=== PATIENT | male | born 1940 | race Caucasian/White ===

== ENCOUNTER 2018-05-30 15:14 | Inpatient (IN) | payer MEDICARE ==
--- NOTE | 2018-05-30 15:42 | ED ---
General Adult HPI - General Chief complaint: Chest Pain Stated complaint: chest pain Time Seen by Provider: 05/30/18 15:26 Source: patient, RN notes reviewed, old records reviewed Mode of arrival: wheelchair Limitations: no limitations - History of Present Illness Initial comments: 77-year-old male with history of CAD status post CABG presenting for evaluation of chest pain. Patient has history of hypercholesterolemia and hypertriglyceridemia. He is a nonsmoker, no history diabetes. His pain began around 10 AM this morning, this was mild right-sided at 1-2 out of 10. He did complain of some mild nausea, no significant vomiting. No diaphoresis. Pain is left sided pressure. He does also reports some palpitations. Patient is currently on aspirin and Xarelto. He states he had similar symptoms 2 nights prior, this woke patient from sleep. This symptom resolved with no specific treatment. Patient did take nitroglycerin today with some improvement in his pain. - Related Data Home Medications Medication Instructions Recorded Confirmed Multivitamin [Men's Multi-Vitamin] 1 tab PO DAILY 04/11/14 05/30/18 Isosorbide Mononitrate ER [Imdur] 30 mg PO DAILY 04/13/14 05/30/18 Ubidecarenone [Coq-10] 200 mg PO DAILY 04/13/14 05/30/18 Atorvastatin [Lipitor] 20 mg PO DAILY 10/15/14 06/16/16 Metoprolol Succinate (ER) [Toprol 75 mg PO BID 10/15/14 05/30/18 XL] Tamsulosin [Flomax] 0.4 mg PO HS 10/15/14 05/30/18 Aspirin EC [Ecotrin Low Dose] 81 mg PO DAILY 06/16/16 05/30/18 Polyethylene Glycol 3350 [Miralax] 0.5 tsp PO QAM 06/16/16 05/30/18 Rivaroxaban [Xarelto] 20 mg PO DAILY 06/16/16 05/30/18 ALPRAZolam [Xanax] 0.25 mg PO HS PRN 05/30/18 05/30/18 Acetaminophen Tab [Tylenol Tab] 650 mg PO Q6H PRN 05/30/18 05/30/18 Polyethylene Glycol 3350 [Miralax] 1 tsp PO HS 05/30/18 05/30/18 Previous Rx's Medication Instructions Recorded Nitroglycerin Sl Tabs [Nitrostat] 0.4 mg SUBLINGUAL Q5M PRN #0 tab 06/17/16 Allergies Allergy/AdvReac Type Severity Reaction Status Date / Time Penicillins Allergy Rash/Hives Verified 05/30/18 15:45 promethazine HCl AdvReac Uncontrolled Verified 05/30/18 15:45 [From Phenergan] Muscle Movements Review of Systems ROS Statement: Those systems with pertinent positive or pertinent negative responses have been documented in the HPI. ROS Other: All systems not noted in ROS Statement are negative. Past Medical History Past Medical History: Coronary Artery Disease (CAD), Hyperlipidemia, Myocardial Infarction ([place]), Pneumonia, Prostate Disorder, Skin Disorder Additional Past Medical History / Comment(s): renal lithiasis, Arthritis, SKIN CA, Last Myocardial Infarction Date:: 2007 History of Any Multi-Drug Resistant Organisms: None Reported Past Surgical History: Coronary Bypass/CABG, Heart Catheterization, Orthopedic Surgery, Prostate Surgery Additional Past Surgical History / Comment(s): lithotripsy, renal lithiasis resection with left renal open resection, also renal lithiasis resection with basket removal, SKIN CA REMOVED Past Anesthesia/Blood Transfusion Reactions: No Reported Reaction Additional Past Anesthesia/Blood Transfusion Reaction / Comment(s): DIFF WAKING Past Psychological History: No Psychological Hx Reported Smoking Status: Never smoker Past Alcohol Use History: None Reported, Occasional Past Drug Use History: None Reported - Past Family History Father Family Medical History: Cancer, Myocardial Infarction ([place]) Additional Family Medical History / Comment(s): OF PACREATIC CA AGE 70 Mother Family Medical History: Cancer, CVA/TIA, Myocardial Infarction ([place]) Additional Family Medical History / Comment(s): AGE 86 BREAST CA General Exam Limitations: no limitations General appearance: alert, in no apparent distress Head exam: Present: atraumatic, normocephalic Eye exam: Present: normal appearance, PERRL ENT exam: Present: normal exam Neck exam: Present: normal inspection. Absent: tenderness, meningismus Respiratory exam: Present: normal lung sounds bilaterally. Absent: respiratory distress, wheezes Cardiovascular Exam: Present: regular rate, normal rhythm GI/Abdominal exam: Present: soft. Absent: distended, tenderness, guarding Extremities exam: Present: normal inspection, normal capillary refill. Absent: pedal edema Neurological exam: Present: alert, oriented X3, CN II-XII intact. Absent: motor sensory deficit Psychiatric exam: Present: normal affect, normal mood Skin exam: Present: warm, dry, intact. Absent: cyanosis, diaphoretic Course Vital Signs 05/30/18 15:16 Temperature 97.7 F Pulse Rate 71 Respiratory 20 Rate Blood Pressure 118/59 O2 Sat by Pulse 98 Oximetry EKG Findings - EKG Comments: EKG Findings:: EKG: Sinus rhythm with first-degree AV block, no ST segment elevation, there is Q waves in the inferior leads. Rate of 73, TN interval 222 , QRS duration 74, QTC 412 Medical Decision Making - Medical Decision Making 77-year-old male with history of CAD presenting with intermittent chest pain. Symptoms are mild but somewhat concerning for ACS. EKG does not show any definitive signs of acute ischemia. X-ray does show some concern for bronchitis versus mild CHF. Patient has no known history of CHF. Lungs are clear on exam. He does wear supplement oxygen at night as needed. Normal CBC, normal CMP, initial troponin is negative, BNP is normal. Given the patient's symptoms is started on heparin and nitroglycerin emergency department. He will be admitted for serial cardiac enzymes, telemetry, and cardiology evaluation. - Lab Data Result diagrams: 05/30/18 14:30 05/30/18 14:30 Lab Results 05/30/18 05/30/18 05/30/18 Range/Units 14:30 14:30 14:30 WBC 8.6 (3.8-10.6) k/uL RBC 5.07 (4.30-5.90) m/uL Hgb 15.9 (13.0-17.5) gm/dL Hct 48.1 (39.0-53.0) % MCV 94.8 (80.0-100.0) fL MCH 31.3 (25.0-35.0) pg MCHC 33.0 (31.0-37.0) g/dL RDW 13.0 (11.5-15.5) % Plt Count 196 (150-450) k/uL Neutrophils % 59 % Lymphocytes % 30 % Monocytes % 5 % Eosinophils % 3 % Basophils % 1 % Neutrophils # 5.1 (1.3-7.7) k/uL Lymphocytes # 2.6 (1.0-4.8) k/uL Monocytes # 0.5 (0-1.0) k/uL Eosinophils # 0.3 (0-0.7) k/uL Basophils # 0.1 (0-0.2) k/uL PT (9.0-12.0) sec INR (<1.2) APTT (22.0-30.0) sec Sodium 141 (137-145) mmol/L Potassium 4.3 (3.5-5.1) mmol/L Chloride 106 (98-107) mmol/L Carbon Dioxide 25 (22-30) mmol/L Anion Gap 10 mmol/L BUN 18 (9-20) mg/dL Creatinine 1.23 (0.66-1.25) mg/dL Est GFR (CKD-EPI)AfAm 66 (>60 ml/min/1.73 sqM) Est GFR (CKD-EPI)NonAf 57 (>60 ml/min/1.73 sqM) Glucose 135 H (74-99) mg/dL Calcium 9.3 (8.4-10.2) mg/dL Magnesium 2.1 (1.6-2.3) mg/dL Total Bilirubin 0.9 (0.2-1.3) mg/dL AST 33 (17-59) U/L ALT 40 (21-72) U/L Alkaline Phosphatase 85 (38-126) U/L Total Creatine Kinase 155 (55-170) U/L CK-MB (CK-2) 1.4 (0.0-2.4) ng/mL CK-MB (CK-2) Rel Index 0.9 Troponin I <0.012 (0.000-0.034) ng/mL NT-Pro-B Natriuret Pep pg/mL Total Protein 7.1 (6.3-8.2) g/dL Albumin 4.1 (3.5-5.0) g/dL 05/30/18 05/30/18 Range/Units 14:30 14:30 WBC (3.8-10.6) k/uL RBC (4.30-5.90) m/uL Hgb (13.0-17.5) gm/dL Hct (39.0-53.0) % MCV (80.0-100.0) fL MCH (25.0-35.0) pg MCHC (31.0-37.0) g/dL RDW (11.5-15.5) % Plt Count (150-450) k/uL Neutrophils % % Lymphocytes % % Monocytes % % Eosinophils % % Basophils % % Neutrophils # (1.3-7.7) k/uL Lymphocytes # (1.0-4.8) k/uL Monocytes # (0-1.0) k/uL Eosinophils # (0-0.7) k/uL Basophils # (0-0.2) k/uL PT 13.0 H (9.0-12.0) sec INR 1.4 H (<1.2) APTT 30.3 H (22.0-30.0) sec Sodium (137-145) mmol/L Potassium (3.5-5.1) mmol/L Chloride (98-107) mmol/L Carbon Dioxide (22-30) mmol/L Anion Gap mmol/L BUN (9-20) mg/dL Creatinine (0.66-1.25) mg/dL Est GFR (CKD-EPI)AfAm (>60 ml/min/1.73 sqM) Est GFR (CKD-EPI)NonAf (>60 ml/min/1.73 sqM) Glucose (74-99) mg/dL Calcium (8.4-10.2) mg/dL Magnesium (1.6-2.3) mg/dL Total Bilirubin (0.2-1.3) mg/dL AST (17-59) U/L ALT (21-72) U/L Alkaline Phosphatase (38-126) U/L Total Creatine Kinase (55-170) U/L CK-MB (CK-2) (0.0-2.4) ng/mL CK-MB (CK-2) Rel Index Troponin I (0.000-0.034) ng/mL NT-Pro-B Natriuret Pep 129 pg/mL Total Protein (6.3-8.2) g/dL Albumin (3.5-5.0) g/dL Critical Care Time Critical Care Time: Yes Total Critical Care Time: 35 Disposition Clinical Impression: Unstable angina Disposition: ADMITTED IP TO THIS [facility] Condition: Stable Is patient prescribed a controlled substance at d/c from ED?: No Referrals: David Priest MD [Primary Care Provider] - 1-2 days Decision to Admit Reason: Admit from EC Decision Date: 05/30/18 Decision Time: 16:29
[2018-05-30 15:45] LABS: Basophils # (A) 0.1 k/uL (0-0.2); Basophils % (A) 1 %; Eosinophils # (A) 0.3 k/uL (0-0.7); Eosinophils % (A) 3 %; HCT 48.1 % (39.0-53.0); HGB 15.9 gm/dL (13.0-17.5); Lymphocytes # (A) 2.6 k/uL (1.0-4.8); Lymphocytes % (A) 30 %; MCH 31.3 pg (25.0-35.0); MCV 94.8 fL (80.0-100.0); Mean Platelet Volume 6.6; Monocytes # (A) 0.5 k/uL (0-1.0); Monocytes % (A) 5 %; Neutrophils # (A) 5.1 k/uL (1.3-7.7); Neutrophils % (A) 59 %; Platelet Count 196 k/uL (150-450); RBC 5.07 m/uL (4.30-5.90); WBC 8.6 k/uL (3.8-10.6)
[2018-05-30 15:55] LABS: Creatine Kinase 155 U/L (55-170)
[2018-05-30 15:57] LABS: Albumin 4.1 g/dL (3.5-5.0); Calcium 9.3 mg/dL (8.4-10.2); Magnesium 2.1 mg/dL (1.6-2.3); Potassium 4.3 mmol/L (3.5-5.1); Total Bilirubin 0.9 mg/dL (0.2-1.3); Total Protein 7.1 g/dL (6.3-8.2)
[2018-05-30 16:00] LABS: INR 1.4 (<1.2); Partial Thromboplastin Time 30.3 sec (22.0-30.0)
--- NOTE | 2018-05-30 16:06 | XR ---
EXAMINATION TYPE: XR chest 2V DATE OF EXAM: 05/30/2018 COMPARISON: 06/16/2016 HISTORY: 77-year-old male with chest pain TECHNIQUE: Frontal and lateral views FINDINGS: PA sternotomy wires are present. Heart upper limits of normal in size. Diffuse interstitial prominenc e persists. Strandy atelectasis at the lung bases. No pleural effusion. Suture anchors at the left hu meral head from prior cuff repair. IMPRESSION: Diffuse interstitial prominence appears largely chronic. Correlate for possible bronchitis, chronic a sthma, or mild pulmonary vascular congestion.
[2018-05-30 16:07] LABS: Creatine Kinase MB 1.4 ng/mL (0.0-2.4); Troponin I <0.012 ng/mL (0.000-0.034)
[2018-05-30] MEDS ORDERED: HEPARIN SODIUM,PORCINE 5,000 UNIT/ML 1 ML VIAL IV PRN (16:14)
[2018-05-30] MEDS ORDERED: HEPARIN SODIUM,PORCINE 5,000 UNIT/ML 1 ML VIAL IV ONE (16:14)
[2018-05-30] MEDS ORDERED: ASPIRIN 325 MG TAB PO STA (16:14)
[2018-05-30] MEDS ORDERED: HEPARIN SOD,PORK IN 0.45% NACL 25,000 UNIT in 0.45% NACL 1 500ML.BAG IV SCH (16:15)
[2018-05-30] MEDS ORDERED: MORPHINE SULFATE 4 MG/ML SYRINGE IV PRN (16:23)
[2018-05-30] MEDS ORDERED: NALOXONE 0.4 MG/ML 1 ML VIAL IV PRN (16:23)
[2018-05-30] MEDS ORDERED: NITROGLYCERIN-D5W PMX 50 MG in DEXTROSE/WATER 1 250ML.BAG IV ONE (16:26)
[2018-05-30] MEDS ORDERED: ALPRAZolam 0.25 MG TAB PO PRN (19:33)
[2018-05-30] MEDS ORDERED: ACETAMINOPHEN TAB 325 MG TAB PO PRN (19:33)
[2018-05-30] MEDS: TAMSULOSIN 0.4 MG CAP.ER.24H PO SCH (20:23)
[2018-05-30] MEDS: METOPROLOL SUCCINATE (ER) 25 MG TAB.ER.24H PO SCH (20:23)
[2018-05-30 20:51] LABS: Creatine Kinase 135 U/L (55-170)
[2018-05-30] MEDS ORDERED: TEMAZEPAM 15 MG CAP PO PRN (21:00)
[2018-05-30 21:04] LABS: Creatine Kinase MB 1.3 ng/mL (0.0-2.4); Troponin I <0.012 ng/mL (0.000-0.034)
[2018-05-31 03:15] LABS: Basophils # (A) 0.1 k/uL (0-0.2); Basophils % (A) 1 %; Eosinophils # (A) 0.4 k/uL (0-0.7); Eosinophils % (A) 4 %; HCT 48.6 % (39.0-53.0); Lymphocytes # (A) 3.3 k/uL (1.0-4.8); Lymphocytes % (A) 36 %; MCH 31.3 pg (25.0-35.0); MCHC 32.9 g/dL (31.0-37.0); Mean Platelet Volume 7.1; Monocytes # (A) 0.6 k/uL (0-1.0); Monocytes % (A) 7 %; Neutrophils # (A) 4.4 k/uL (1.3-7.7); Neutrophils % (A) 49 %; Platelet Count 200 k/uL (150-450); RBC 5.11 m/uL (4.30-5.90); WBC 9.1 k/uL (3.8-10.6)
[2018-05-31 03:32] LABS: Albumin 3.7 g/dL (3.5-5.0); Calcium 9.1 mg/dL (8.4-10.2); Potassium 4.3 mmol/L (3.5-5.1); Total Bilirubin 0.6 mg/dL (0.2-1.3); Total Protein 6.6 g/dL (6.3-8.2)
[2018-05-31 03:34] LABS: Creatine Kinase 115 U/L (55-170)
[2018-05-31 03:47] LABS: Creatine Kinase MB 1.1 ng/mL (0.0-2.4); Troponin I <0.012 ng/mL (0.000-0.034)
[2018-05-31] MEDS: MULTIVITAMINS, THERA 1 EACH TAB PO SCH (08:19)
[2018-05-31] MEDS: METOPROLOL SUCCINATE (ER) 25 MG TAB.ER.24H PO SCH ×2 (08:20→20:37)
[2018-05-31] MEDS: ATORVASTATIN 20 MG TAB PO SCH (08:20)
[2018-05-31] MEDS: ISOSORBIDE MONONITRATE ER 30 MG TAB.ER.24H PO SCH (08:20)
[2018-05-31] MEDS: ASPIRIN 81 MG PO SCH (08:20)
[2018-05-31] MEDS ORDERED: CAFFEINE CITRATE 60 MG/3 ML VIAL IV PRN (09:36)
[2018-05-31] MEDS ORDERED: REGADENOSON 0.4 MG/5 ML SYRINGE IV ONE (09:36)
--- NOTE | 2018-05-31 09:41 | P.CRDCN ---
<Caryn Trivedi E - Last Filed: 05/31/18 09:25> History of Present Illness Consult date: 05/31/18 Requesting physician: Marcela Gutierrez Consult reason: chest pain Chief complaint: Chest pain History of present illness: This is a pleasant 77-year-old gentleman who follows regularly with Dr. Montano in the office he actually last saw him he said approximately one week ago. He has history of paroxysmal atrial fibrillation and documented thromboembolism in the setting of atrial fibrillation, hypertension, hyperlipidemia, coronary artery disease with prior bypass surgery in 2007 according to the he did undergo repeat cardiac catheterization in 2012 exact details of that I don't have available at this time, he also has history of ventricular tachycardia in the past overall the patient has been doing quite well at home, he presents to the hospital now with symptoms of chest pressure and heaviness in the left side of his chest, initially he first noticed symptoms a couple of days ago, since then he has been having recurrent episodes , yesterday several times in one day. His initial episode woke him from sleep, since then the symptoms are nonexertional. At time of my examination this morning he is currently chest pain-free. EKG shows normal sinus rhythm with first-degree AV block, no acute changes. Chest x-ray shows diffuse interstitial prominence, largely chronic. I pressure 130/70 with a heart rate in the 60s, 99% on room air. White blood cell count 9.1, hemoglobin 16, platelet count 200. Sodium 138, potassium 4.3, BUN 19, creatinine 1.0, magnesium 2.1. Troponins are negative 3. At the time of my examination this morning he denies any chest discomfort. We will obtain an echocardiogram with Doppler study and schedule the patient for a Lexiscan stress test today. Past Medical History Past Medical History: Atrial Fibrillation, Coronary Artery Disease (CAD), Cancer , Hyperlipidemia, Myocardial Infarction ([place]), Pneumonia, Prostate Disorder, Skin Disorder Additional Past Medical History / Comment(s): paroxysmal afib,renal lithiasis, Arthritis, SKIN CA, hiatal hernia,anal fissure. pt stated has has pne vaccine more recnet bianka 2008 but not sure of date-write unable to verify date at time of this admit. Last Myocardial Infarction Date:: 2007 History of Any Multi-Drug Resistant Organisms: None Reported Past Surgical History: Coronary Bypass/CABG, Heart Catheterization, Orthopedic Surgery, Prostate Surgery Additional Past Surgical History / Comment(s): lithotripsy, renal lithiasis resection with left renal open resection, also renal lithiasis resection with basket removal, turpSKIN CA REMOVED, lower dental implants, past ep study, lt rotaotr cuff Past Anesthesia/Blood Transfusion Reactions: No Reported Reaction Additional Past Anesthesia/Blood Transfusion Reaction / Comment(s): DIFF WAKING Smoking Status: Never smoker - Past Family History Father Family Medical History: Cancer, Myocardial Infarction ([place]) Additional Family Medical History / Comment(s): OF PACREATIC CA AGE 70 Mother Family Medical History: Cancer, CVA/TIA, Myocardial Infarction ([place]) Additional Family Medical History / Comment(s): AGE 86 BREAST CA Medications and Allergies Home Medications Medication Instructions Recorded Confirmed Type Multivitamin [Men's Multi-Vitamin] 1 tab PO DAILY 04/11/14 05/30/18 History Isosorbide Mononitrate ER [Imdur] 30 mg PO DAILY 04/13/14 05/30/18 History Ubidecarenone [Coq-10] 200 mg PO DAILY 04/13/14 05/30/18 History Atorvastatin [Lipitor] 20 mg PO DAILY 10/15/14 06/16/16 History Metoprolol Succinate (ER) [Toprol 75 mg PO BID 10/15/14 05/30/18 History XL] Tamsulosin [Flomax] 0.4 mg PO HS 10/15/14 05/30/18 History Aspirin EC [Ecotrin Low Dose] 81 mg PO DAILY 06/16/16 05/30/18 History Polyethylene Glycol 3350 [Miralax] 0.5 tsp PO QAM 06/16/16 05/30/18 History Rivaroxaban [Xarelto] 20 mg PO DAILY 06/16/16 05/30/18 History Nitroglycerin Sl Tabs [Nitrostat] 0.4 mg SUBLINGUAL Q5M PRN #0 tab 06/17/16 Rx ALPRAZolam [Xanax] 0.25 mg PO HS PRN 05/30/18 05/30/18 History Acetaminophen Tab [Tylenol Tab] 650 mg PO Q6H PRN 05/30/18 05/30/18 History Polyethylene Glycol 3350 [Miralax] 1 tsp PO HS 05/30/18 05/30/18 History Allergies Allergy/AdvReac Type Severity Reaction Status Date / Time Penicillins Allergy Rash/Hives Verified 05/30/18 15:45 promethazine HCl AdvReac Uncontrolled Verified 05/30/18 15:45 [From Phenergan] Muscle Movements Physical Exam Vitals: Vital Signs Temp Pulse Pulse Resp BP BP Pulse Ox 05/31/18 08:00 98.1 F 66 16 131/74 99 05/31/18 04:00 97.1 F L 60 16 112/64 95 05/30/18 23:56 97.9 F 70 18 132/71 95 05/30/18 20:00 96.9 F L 71 18 127/67 95 05/30/18 18:20 98.4 F 62 16 132/78 96 05/30/18 17:16 62 18 134/63 97 05/30/18 15:16 97.7 F 71 20 118/59 98 Intake and Output 05/30/18 05/31/18 05/31/18 22:59 06:59 14:59 Intake Total 133.057 0 Balance 133.057 0 Intake: Intake, IV Titration 133.057 Amount Heparin Sod,Pork in 0.45% 133.057 NaCl 25,000 unit In 0.45 % NaCl 1 500ml.bag @ 12 UNITS/KG/HR 19.81 mls/hr IV .Q24H ABI Rx#: [id number] Oral 0 Other: # Voids 1 Weight 82.554 kg 84 kg PHYSICAL EXAMINATION: GENERAL: 77-year-old gentleman in no acute distress at the time of my examination HEENT: Head is atraumatic, normocephalic. Pupils equal, round. Sclera anicteric. Conjunctiva are clear. Mucous membranes of the mouth are moist. Neck is supple. There is no elevated jugular venous pressure. No carotid bruit is heard. HEART EXAMINATION: Heart S1, S2 normal. No murmur or gallop heard. CHEST EXAMINATION: Lungs are clear to auscultation and precussion. No chest wall tenderness is noted on palpation or with deep breathing. ABDOMEN: Soft, nontender. Bowel sounds are heard. No organomegaly noted. EXTREMITIES: 2+ peripheral pulses with no evidence of peripheral edema and no calf tenderness noted. NEUROLOGIC patient is awake, alert and oriented X3 . Results 05/31/18 02:32 09/28/18 02:32 Cardiac Enzymes 05/30/18 05/30/18 05/30/18 Range/Units 14:30 14:30 20:14 AST 33 (17-59) U/L CK-MB (CK-2) 1.4 1.3 (0.0-2.4) ng/mL Troponin I <0.012 <0.012 (0.000-0.034) ng/mL 05/31/18 05/31/18 Range/Units 02:32 02:32 AST 40 (17-59) U/L CK-MB (CK-2) 1.1 (0.0-2.4) ng/mL Troponin I <0.012 (0.000-0.034) ng/mL Coagulation 05/30/18 05/30/18 Range/Units 14:30 23:04 PT 13.0 H (9.0-12.0) sec APTT 30.3 H 47.3 H (22.0-30.0) sec CBC 05/30/18 05/31/18 Range/Units 14:30 02:32 WBC 8.6 9.1 (3.8-10.6) k/uL RBC 5.07 5.11 (4.30-5.90) m/uL Hgb 15.9 16.0 (13.0-17.5) gm/dL Hct 48.1 48.6 (39.0-53.0) % Plt Count 196 200 (150-450) k/uL Comprehensive Metabolic Panel 05/30/18 05/31/18 Range/Units 14:30 02:32 Sodium 141 138 (137-145) mmol/L Potassium 4.3 4.3 (3.5-5.1) mmol/L Chloride 106 107 (98-107) mmol/L Carbon Dioxide 25 22 (22-30) mmol/L BUN 18 19 (9-20) mg/dL Creatinine 1.23 1.09 (0.66-1.25) mg/dL Glucose 135 H 109 H (74-99) mg/dL Calcium 9.3 9.1 (8.4-10.2) mg/dL AST 33 40 (17-59) U/L ALT 40 43 (21-72) U/L Alkaline Phosphatase 85 89 (38-126) U/L Total Protein 7.1 6.6 (6.3-8.2) g/dL Albumin 4.1 3.7 (3.5-5.0) g/dL Current Medications Generic Name Dose Route Start Last Admin Trade Name Freq PRN Reason Stop Dose Admin Acetaminophen 650 mg 05/30/18 19:33 Tylenol Tab PO Q6H PRN Pain Alprazolam 0.25 mg 05/30/18 19:33 Xanax PO HS PRN Insomnia Aspirin 81 mg 05/31/18 09:00 05/31/18 08:20 Aspirin PO 81 mg DAILY ABI Administration Atorvastatin Calcium 20 mg 05/31/18 09:00 05/31/18 08:20 Lipitor PO 20 mg DAILY ABI Administration Heparin Sodium (Porcine) 0 unit 05/30/18 16:14 Heparin IV PER PROTOCOL PRN Low PTT Protocol Heparin Sodium/Sodium Chloride 500 mls @ 19.81 mls/hr 05/30/18 16:15 23:57 25,000 unit/ Sodium Chloride IV 11.99 units/kg/hr .Q24H ABI 19.81 mls/hr Titration Protocol 12 UNITS/KG/HR Isosorbide Mononitrate 30 mg 05/31/18 09:00 05/31/18 08:20 Imdur PO 30 mg DAILY ABI Administration Metoprolol Succinate 75 mg 05/30/18 21:00 05/31/18 08:20 Toprol Xl PO 75 mg BID ABI Administration Morphine Sulfate 4 mg 05/30/18 16:23 Morphine Sulfate (Inj) IV Q4HR PRN Severe Pain Multivitamins 1 each 05/31/18 12:00 05/31/18 08:19 Theragran PO 1 each DAILY@1200 ABI Administration Naloxone HCl 0.2 mg 05/30/18 16:23 Narcan IV Q2M PRN Opioid Reversal Tamsulosin HCl 0.4 mg 05/30/18 21:00 05/30/18 20:23 Flomax PO 0.4 mg HS ABI Administration Temazepam 15 mg 05/30/18 21:00 Restoril PO HS PRN Insomnia Intake and Output 05/30/18 05/31/18 05/31/18 22:59 06:59 14:59 Intake Total 133.057 0 Balance 133.057 0 Intake: Intake, IV Titration 133.057 Amount Heparin Sod,Pork in 0.45% 133.057 NaCl 25,000 unit In 0.45 % NaCl 1 500ml.bag @ 12 UNITS/KG/HR 19.81 mls/hr IV .Q24H ABI Rx#: [id number] Oral 0 Other: # Voids 1 Weight 82.554 kg 84 kg 05/31/18 02:32 05/31/18 02:32 EKG Interpretations (text) EKG shows a normal sinus rhythm with first-degree AV block. Assessment and Plan Plan: Assessment and plan #1 chest pain, suggestive of possible unstable angina. Troponins negative 3. EKG shows normal sinus rhythm with first-degree AV block, no acute changes noted. #2 known history of coronary artery disease with prior bypass surgery in 2007 #3 hypertension #4 hyperlipidemia #5 paroxysmal A. fib #6 history of ventricular tachycardia, nonsustained Plan We will obtain an echocardiogram with Doppler study. Patient also has been recommended to undergo a Lexiscan stress test which will be ordered today. We will discontinue the IV heparin, and also obtain a fasting lipid profile. Further recommendations will be based on these findings and the patient's clinical course. DNP note has been reviewed, I agree with a documented findings and plan of care. Patient was seen and examined. <Alfredo De Paz - Last Filed: 05/31/18 10:02> History of Present Illness History of present illness: Patient interviewed and examined. Recurrent chest discomfort across her chest at rest and even woke him up at night No undue shortness of breath. Known atrial tachycardia known nonsustained ventricular tachycardia known anteroapical hypokinesis in the setting of a preserved LV systolic function and a normal EP study without induction of any ventricular tachycardia Suggest 2-D echo and Doppler study to assess cardiac structure and function and look for any new wall motion amenities as well as a leg computed tomography scan Cardiolite stress test which to look for progression of coronary artery disease and ischemia. He has had an inferior wall LA in the past and status post carotid stenting If there is further reduction with a systolic function or if there is progression of coronary artery disease with reduced systolic function then an EP study will be considered at a later date for risk stratification Physical Exam Vitals: Vital Signs Temp Pulse Pulse Resp BP BP Pulse Ox 05/31/18 08:00 98.1 F 66 16 131/74 99 05/31/18 04:00 97.1 F L 60 16 112/64 95 05/30/18 23:56 97.9 F 70 18 132/71 95 05/30/18 20:00 96.9 F L 71 18 127/67 95 05/30/18 18:20 98.4 F 62 16 132/78 96 05/30/18 17:16 62 18 134/63 97 05/30/18 15:16 97.7 F 71 20 118/59 98 Intake and Output 05/30/18 05/31/18 05/31/18 22:59 06:59 14:59 Intake Total 133.057 0 Balance 133.057 0 Intake: Intake, IV Titration 133.057 Amount Heparin Sod,Pork in 0.45% 133.057 NaCl 25,000 unit In 0.45 % NaCl 1 500ml.bag @ 12 UNITS/KG/HR 19.81 mls/hr IV .Q24H [facility] Rx#: [id number] Oral 0 Other: # Voids 1 Weight 82.554 kg 84 kg Results 05/31/18 02:32 05/31/18 02:32 Cardiac Enzymes 05/30/18 05/30/18 05/30/18 Range/Units 14:30 14:30 20:14 AST 33 (17-59) U/L CK-MB (CK-2) 1.4 1.3 (0.0-2.4) ng/mL Troponin I <0.012 <0.012 (0.000-0.034) ng/mL 05/31/18 05/31/18 Range/Units 02:32 02:32 AST 40 (17-59) U/L CK-MB (CK-2) 1.1 (0.0-2.4) ng/mL Troponin I <0.012 (0.000-0.034) ng/mL Coagulation 05/30/18 05/30/18 Range/Units 14:30 23:04 PT 13.0 H (9.0-12.0) sec APTT 30.3 H 47.3 H (22.0-30.0) sec CBC 05/30/18 05/31/18 Range/Units 14:30 02:32 WBC 8.6 9.1 (3.8-10.6) k/uL RBC 5.07 5.11 (4.30-5.90) m/uL Hgb 15.9 16.0 (13.0-17.5) gm/dL Hct 48.1 48.6 (39.0-53.0) % Plt Count 196 200 (150-450) k/uL Comprehensive Metabolic Panel 05/30/18 05/31/18 Range/Units 14:30 02:32 Sodium 141 138 (137-145) mmol/L Potassium 4.3 4.3 (3.5-5.1) mmol/L Chloride 106 107 (98-107) mmol/L Carbon Dioxide 25 22 (22-30) mmol/L BUN 18 19 (9-20) mg/dL Creatinine 1.23 1.09 (0.66-1.25) mg/dL Glucose 135 H 109 H (74-99) mg/dL Calcium 9.3 9.1 (8.4-10.2) mg/dL AST 33 40 (17-59) U/L ALT 40 43 (21-72) U/L Alkaline Phosphatase 85 89 (38-126) U/L Total Protein 7.1 6.6 (6.3-8.2) g/dL Albumin 4.1 3.7 (3.5-5.0) g/dL Current Medications Generic Name Dose Route Start Last Admin Trade Name Freq PRN Reason Stop Dose Admin Acetaminophen 650 mg 05/30/18 19:33 Tylenol Tab PO Q6H PRN Pain Alprazolam 0.25 mg 05/30/18 19:33 Xanax PO HS PRN Insomnia Aspirin 81 mg 05/31/18 09:00 05/31/18 08:20 Aspirin PO 81 mg DAILY ABI Administration Atorvastatin Calcium 20 mg 05/31/18 09:00 05/31/18 08:20 Lipitor PO 20 mg DAILY ABI Administration Caffeine Citrate 60 mg 05/31/18 09:36 Cafcit Inj IV 05/31/18 23:00 ONCE PRN Patient Response Isosorbide Mononitrate 30 mg 05/31/18 09:00 05/31/18 08:20 Imdur PO 30 mg DAILY ABI Administration Metoprolol Succinate 75 mg 05/30/18 21:00 05/31/18 08:20 Toprol Xl PO 75 mg BID ABI Administration Morphine Sulfate 4 mg 05/30/18 16:23 Morphine Sulfate (Inj) IV Q4HR PRN Severe Pain Multivitamins 1 each 05/31/18 12:00 05/31/18 08:19 Theragran PO 1 each DAILY@1200 ABI Administration Naloxone HCl 0.2 mg 05/30/18 16:23 Narcan IV Q2M PRN Opioid Reversal Tamsulosin HCl 0.4 mg 05/30/18 21:00 05/30/18 20:23 Flomax PO 0.4 mg HS ABI Administration Temazepam 15 mg 05/30/18 21:00 Restoril PO HS PRN Insomnia Intake and Output 05/30/18 05/31/18 05/31/18 22:59 06:59 14:59 Intake Total 133.057 0 Balance 133.057 0 Intake: Intake, IV Titration 133.057 Amount Heparin Sod,Pork in 0.45% 133.057 NaCl 25,000 unit In 0.45 % NaCl 1 500ml.bag @ 12 UNITS/KG/HR 19.81 mls/hr IV .Q24H ABI Rx#: [id number] Oral 0 Other: # Voids 1 Weight 82.554 kg 84 kg 05/31/18 02:32 05/31/18 02:32
[2018-05-31 10:42] LABS: Cholesterol 121 mg/dL (<200); HDL Cholesterol 35 mg/dL (40-60); LDL Cholesterol,Calculated 37 mg/dL (0-99); Triglycerides 244 mg/dL (<150)
--- NOTE | 2018-05-31 11:27 | ECHOF ---
Referral Reason:chest pain MEASUREMENTS -------- HEIGHT: 167.6 cm WEIGHT: 83.9 kg BP: 131/74 RVIDd: 2.6 cm (< 3.3) IVSd: 1.0 cm (0.6 - 1.1) LVIDd: 4.1 cm (3.9 - 5.3) LVPWd: 1.1 cm (0.6 - 1.1) IVSs: 1.5 cm LVIDs: 2.4 cm LVPWs: 1.3 cm LAESV Index (A-L): 20.26 ml/m Ao Diam: 3.0 cm (2.0 - 3.7) AV Cusp: 2.0 cm (1.5 - 2.6) LA Diam: 3.8 cm (2.7 - 3.8) EPSS: 0.8 cm MV E Andrew: 0.77 m/s MV DecT: 276 ms MV A Andrew: 0.80 m/s MV E/A Ratio: 0.96 RAP: 5.00 mmHg RVSP: 17.87 mmHg MV EF SLOPE: 78.90 mm/s (70 - 150) MV EXCURSION: 1.38 cm (> 18.000) FINDINGS -------- Sinus rhythm. This was a technically adequate study. The left ventricular size is normal. There is mild concentric left ventricular hypertrophy. Overa ll left ventricular systolic function is low-normal with, an EF between 50 - 55 %. [place] Hypokinesis . The right ventricle is normal in size and function. Normal LA size by volume 22+/-6 ml/m2. The right atrium is normal in size. 3 ml of Lumason was utilized for enhancement of images. Aortic valve is trileaflet and is mildly thickened. Trace amount of aortic regurgitation. There is no evidence of aortic stenosis. Mild mitral annular calcification present. There is trace mitral regurgitation. Trace tricuspid regurgitation present. Right ventricular systolic pressure is normal at < 35 mmHg. There is no evidence of pulmonary hypertension. Trace/mild (physiologic) pulmonic regurgitation. The aortic root size is normal. IVC Not well visulized. There is no pericardial effusion. CONCLUSIONS -------- 1. Sinus rhythm. 2. This was a technically adequate study. 3. The left ventricular size is normal. 4. There is mild concentric left ventricular hypertrophy. 5. Overall left ventricular systolic function is low-normal with, an EF between 50 - 55 %. 6. [place] Hypokinesis. 7. Normal LA size by volume 22+/-6 ml/m2. 8. 3 ml of Lumason was utilized for enhancement of images. 9. Aortic valve is trileaflet and is mildly thickened. 10. Trace amount of aortic regurgitation. 11. Mild mitral annular calcification present. 12. There is trace mitral regurgitation. 13. Trace tricuspid regurgitation present. 14. Right ventricular systolic pressure is normal at < 35 mmHg. 15. There is no evidence of pulmonary hypertension. 16. Trace/mild (physiologic) pulmonic regurgitation. 17. The aortic root size is normal. 18. IVC Not well visulized. 19. There is no pericardial effusion. TWISTER IN: Johny Forte RDCS
--- NOTE | 2018-05-31 11:31 | P.STRESS ---
- Stress Test Note Stress Test Results/Findings: Exam Performed: NM stress lexiscan cardiolite Exam Date: 05/31/18 Reason for Exam: Chest pain Height: 5 ft 6 in Weight: 84 kg Protocol: Fanny Scan Stage: na Duration of Exercise: na Resting Heart Rate: 59 Resting Blood Pressure: 107/72 Maximum Achieved Heart Rate: 85 Maximum Achieved Blood Pressure: 121/66 85% PMHR: na 100% PMHR: na METS: na Technologist Comment: Stress Test Results/Findings: This is a 77-year-old gentleman with history of hypercholesterolemia and asthma and also previous myocardial infarction being evaluated for her chest pain. New Stress data: Baseline EKG showed sinus rhythm with normal MS interval, QRS duration with possible old inferior wall DC. Blood pressure at rest is 107/72 with pulse rate of 59. A standard dose of Lexiscan was infused. EKGs taken during and after the infusion did not reveal any changes of ischemia. Final impression: #1. Negative Lexiscan stress test #2. Report on the nuclear images to begin by the radiologist.
--- NOTE | 2018-05-31 12:02 | NM ---
EXAMINATION TYPE: NM stress lexiscan cardiolite DATE OF EXAM: 05/31/2018 COMPARISON: NONE HISTORY: Chest pain TECHNIQUE: After the intravenous administration of 10.59 mCi Tc 99m Sestamibi - Cardiolite resting S PECT images acquired 45 minutes post injection. The patient received 0.4mg Lexiscan, 25.1 mCi Tc 99m Sestamibi - Stress images obtained [address] injection FINDINGS: There is diminished radiotracer accumulation along the inferior wall on the stress images. This has improved radiotracer distribution on the resting images. This extends from the base to the c ardiac apex and can be compatible with stress-induced ischemic changes. Polar maps also suggest the stress-induced escape ischemic change along the inferior wall which may e xtend towards the mid lateral wall. The cardiac apex may have a fixed defect. Mild hypokinesia of the inferior wall appears to be present within the mid to distal portion. Ejection fraction is normal at 55%. IMPRESSION: 1. There appears to be stress-induced ischemic change along the entire inferior wall. Correlate with EKG changes. 2. Small fixed defect at the cardiac apex may be present. 3. Normal ejection fraction A [place] level critical message alert has been initiated for Marcela Gutierrez MD via the [employer] Critical Results System on 05/31/2018 12:00 PM. This message alert has been sent to Marcela Gutierrez MD via the preferences provided by the clinician for the receipt of Radiology Critical Findings. Mess age ID [id number].
--- NOTE | 2018-05-31 12:35 | P.HPIM ---
History of Present Illness H&P Date: 05/30/18 Chief Complaint: Chest pain This is a 77-year-old pleasant gentleman patient of Dr. 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 This occurred about 1 week ago off and on, occurring at rest he awoken one night with the chest pain. This lasted for approximately 20 minutes, thereafter he had several episodes for the past few days, his last chest pain was yesterday, with routine daily activities. Asians pain was characterize as chest pressure, left side of the chest, no significant radiation. Patient denies any cough no fever no chills, patient denies any dysphagia no lower extremity edema. Emergency room, EKG shows first-degree AV block, no acute changes, chest x-ray shows diffuse interstitial prominence, likely chronic, hemoglobin of 16, WBC of 9.1, electrolytes are normal, creatinine 1.0, troponins are negative 1. Patient currently is heparinized, and is on nitro paste consults were made with cardiology Review of Systems Constitutional: Reports as per HPI, Denies anorexia, Denies chills, Denies chronic headaches, Denies chronic pain, Denies daytime sleepiness, Denies fatigue, Denies fever, Denies lethargy, Denies malaise, Denies night sweats, Denies poor appetite, Denies sweats, Denies weakness, Denies weight gain, Denies weight loss Ears, nose, mouth and throat: Reports as per HPI, Denies ant. neck pain, Denies bleeding gums, Denies dental pain, Denies dysphagia, Denies epistaxis, Denies headache, Denies hoarseness, Denies mouth pain, Denies nasal congestion, Denies nasal discharge, Denies neck fullness/pressure, Denies neck lump, Denies nose pain, Denies odynophagia, Denies post-nasal drip, Denies sinus pain, Denies sinus pressure, Denies swelling in mouth, Denies swelling in throat, Denies sore throat, Denies vertigo, Denies voice changes Cardiovascular: Reports as per HPI, Denies chest pain, Denies claudication, Denies decreased exercise tolerance, Denies dyspnea on exertion, Denies edema, Denies high blood pressure, Denies irregular heart beat, Denies leg edema, Denies lightheadedness, Denies orthopnea, Denies palpitations, Denies paroxysmal nocturnal dyspnea, Denies phlebitis, Denies rapid heart beat, Denies shortness of breath, Denies syncope Respiratory: Reports as per HPI, Denies congestion, Denies cough, Denies cough with sputum, Denies dyspnea, Denies excessive sputum, Denies hemoptysis, Denies home oxygen, Denies pain, Denies pain on inspiration, Denies pleurisy, Denies respiratory infections, Denies sleep apnea, Denies snoring, Denies wheezing Gastrointestinal: Reports as per HPI, Denies abdominal pain, Denies belching, Denies bloating, Denies BRBPR, Denies change in bowel habits, Denies coffee ground emesis, Denies constipation, Denies diarrhea, Denies dyspepsia, Denies early satiety, Denies excessive gas, Denies heartburn, Denies hematemesis, Denies hematochezia, Denies indigestion, Denies jaundice, Denies lactose intolerance, Denies loss of appetite, Denies melena, Denies nausea, Denies vomiting Genitourinary: Reports as per HPI, Denies decreased libido, Denies difficulties fathering child, Denies discharge, Denies dysuria, Denies erectile dysfunction, Denies flank pain, Denies genital pain, Denies genital sores, Denies hematuria, Denies impotence, Denies incontinence, Denies kidney stones, Denies nocturia, Denies polyuria, Denies testicular lump, Denies testicular pain, Denies urinary frequency, Denies urinary hesitancy, Denies urinary retention Musculoskeletal: Reports as per HPI Integumentary: Reports as per HPI, Denies acne, Denies boils, Denies brittle nails, Denies change in hair/nails, Denies color changes, Denies darkening of skin, Denies depigmentation, Denies dryness, Denies foot/leg ulcers, Denies growths, Denies hirsutism, Denies lesions, Denies onychomycosis, Denies pruritus , Denies rash, Denies sores, Denies striae, Denies unusual bruising, Denies wounds Neurological: Reports as per HPI, Denies aphasia, Denies ataxia, Denies balance difficulties, Denies burning pain, Denies change in mentation, Denies change in smell/taste, Denies change in speech, Denies confusion, Denies convulsions, Denies double vision, Denies gait dysfunction, Denies head injury, Denies headaches, Denies hearing difficulties, Denies lack of coordination, Denies loss of vision, Denies memory loss, Denies migraines, Denies motor disturbance, Denies numbness, Denies paralysis, Denies paresthesias, Denies seizures, Denies sensory deficit, Denies spasticity, Denies syncope, Denies tic, Denies tingling , Denies transient paralysis, Denies tremors, Denies vertigo, Denies weakness, Denies visual changes Psychiatric: Reports as per HPI, Denies anhedonia, Denies anxiety, Denies anxiety attacks, Denies change in appetite, Denies change in libido, Denies change in sleep habits, Denies confusion, Denies depression, Denies difficulty concentrating, Denies disorientation, Denies hallucinations, Denies hopelessness , Denies hypersomnia, Denies insomnia, Denies irritability, Denies memory loss, Denies mood swings, Denies paranoia, Denies sadness/tearfulness, Denies sleep disturbances, Denies suicidal ideation Endocrine: Reports as per HPI, Denies cold intolerance, Denies deepening of the voice, Denies excessive sweating, Denies excessive thirst, Denies fatigue, Denies flushing, Denies heat intolerance, Denies high blood sugars, Denies increase in ring/shoe/hat size, Denies low blood sugars, Denies nocturia, Denies palpitations, Denies polydipsia, Denies polyphagia, Denies polyuria, Denies proptosis, Denies recent glucocorticoid use, Denies thyroid mass, Denies weight change Hematologic/Lymphatic: Reports as per HPI, Denies easy bleeding, Denies easy bruising, Denies lymphadenopathy, Denies lymphedema, Denies thrombophilia Allergic/Immunologic: Reports as per HPI Past Medical History Past Medical History: Atrial Fibrillation, Coronary Artery Disease (CAD), Cancer , Hyperlipidemia, Myocardial Infarction ([place]), Pneumonia, Prostate Disorder, Skin Disorder Additional Past Medical History / Comment(s): paroxysmal afib,renal lithiasis, Arthritis, SKIN CA, hiatal hernia,anal fissure. pt stated has has pne vaccine more recnet bianka 2008 but not sure of date-write unable to verify date at time of this admit. Last Myocardial Infarction Date:: 2007 History of Any Multi-Drug Resistant Organisms: None Reported Past Surgical History: Coronary Bypass/CABG, Heart Catheterization, Orthopedic Surgery, Prostate Surgery Additional Past Surgical History / Comment(s): lithotripsy, renal lithiasis resection with left renal open resection, also renal lithiasis resection with basket removal, turpSKIN CA REMOVED, lower dental implants, past ep study, lt rotaotr cuff Past Anesthesia/Blood Transfusion Reactions: No Reported Reaction Additional Past Anesthesia/Blood Transfusion Reaction / Comment(s): DIFF WAKING Smoking Status: Never smoker - Past Family History Father Family Medical History: Cancer, Myocardial Infarction ([place]) Additional Family Medical History / Comment(s): OF PACREATIC CA AGE 70 Mother Family Medical History: Cancer, CVA/TIA, Myocardial Infarction ([place]) Additional Family Medical History / Comment(s): AGE 86 BREAST CA Medications and Allergies Home Medications Medication Instructions Recorded Confirmed Type Multivitamin [Men's Multi-Vitamin] 1 tab PO DAILY 04/11/14 05/30/18 History Isosorbide Mononitrate ER [Imdur] 30 mg PO DAILY 04/13/14 05/30/18 History Ubidecarenone [Coq-10] 200 mg PO DAILY 04/13/14 05/30/18 History Atorvastatin [Lipitor] 20 mg PO DAILY 10/15/14 06/16/16 History Metoprolol Succinate (ER) [Toprol 75 mg PO BID 10/15/14 05/30/18 History XL] Tamsulosin [Flomax] 0.4 mg PO HS 10/15/14 05/30/18 History Aspirin EC [Ecotrin Low Dose] 81 mg PO DAILY 06/16/16 05/30/18 History Polyethylene Glycol 3350 [Miralax] 0.5 tsp PO QAM 06/16/16 05/30/18 History Rivaroxaban [Xarelto] 20 mg PO DAILY 06/16/16 05/30/18 History Nitroglycerin Sl Tabs [Nitrostat] 0.4 mg SUBLINGUAL Q5M PRN #0 tab 06/17/16 Rx ALPRAZolam [Xanax] 0.25 mg PO HS PRN 05/30/18 05/30/18 History Acetaminophen Tab [Tylenol Tab] 650 mg PO Q6H PRN 05/30/18 05/30/18 History Polyethylene Glycol 3350 [Miralax] 1 tsp PO HS 05/30/18 05/30/18 History Allergies Allergy/AdvReac Type Severity Reaction Status Date / Time Penicillins Allergy Rash/Hives Verified 05/30/18 15:45 promethazine HCl AdvReac Uncontrolled Verified 05/30/18 15:45 [From Phenergan] Muscle Movements Physical Exam Vitals: Vital Signs Temp Pulse Pulse Resp BP BP Pulse Ox 05/30/18 18:20 98.4 F 62 16 132/78 96 05/30/18 17:16 62 18 134/63 97 05/30/18 15:16 97.7 F 71 20 118/59 98 Intake and Output 05/30/18 05/30/18 05/30/18 06:59 14:59 22:59 Other: Weight 82.554 kg - Constitutional General appearance: cooperative, no acute distress, obese - EENT Eyes: anicteric sclerae, EOMI, PERRLA, dentition normal, normal appearance ENT: NA/AT, normal oropharynx - Neck Neck: normal ROM - Respiratory Respiratory: bilateral: CTA, negative: diminished, dullness, rales, rhonchi - Cardiovascular Rhythm: regular Heart sounds: normal: S1, S2 Abnormal Heart Sounds: no systolic murmur, no diastolic murmur, no rub, no S3 Gallop, no S4 Gallop, no click, no other - Gastrointestinal General gastrointestinal: normal bowel sounds, soft - Integumentary Integumentary: normal - Neurologic Neurologic: CNII-XII intact - Musculoskeletal Musculoskeletal: gait normal, strength equal bilaterally - Psychiatric Psychiatric: A&O x's 3, appropriate affect, intact judgment & insight Results CBC & Chem 7: 05/31/18 02:32 05/31/18 02:32 Labs: Abnormal Lab Results - Last 24 Hours (Table) 05/30/18 05/30/18 Range/Units 14:30 14:30 PT 13.0 H (9.0-12.0) sec INR 1.4 H (<1.2) APTT 30.3 H (22.0-30.0) sec Glucose 135 H (74-99) mg/dL Laboratory Results Assessment and Plan Plan: 1. Unstable angina, with known history of CAD, history of ischemic cardiomyopathy patient currently is on IV heparin, and Nitropaste. Patient would be monitored serially with troponins, echocardiogram, cardiology consultation. Continue on beta blockers, and aspirin lipid panel to be done, patient will be requiring a stress test secondary to symptoms, his last cardiac cath was [place] [address] murphy continue on isosorbide 30 mg daily and Toprol 75 mg twice a day 3. Paroxysmal atrial fibrillation with known history of nonsustained ventricular tachycardia, was started by Dr. murphy in the past, with the EP study and ablation that was not successful 2. 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 No current symptoms Patient s on Xarelto. 4.. History of coronary artery disease status post coronary artery bypass graft. Patient's had a recent heart catheterization done in 2012 that showed occluded graft to the obtuse marginal in the right coronary artery and patent left internal mammary artery to the LAD. Continue beta howie. Cardiology consult is in place. Continue LEAH inhibitor as well.. 5 Moderate left ventricular dysfunction. Last known EF was 45%, echocardiogram is requested to this admission Continue beta howie. 6. Hypertension hypertensive cardiovascular disease. Continue Zestril 20 mg daily and Toprol-XL 50 mg daily. 7. Hyperlipidemia. Continue Lipitor [address] Priest has discontinued Lopid 600 mg one month ago 8. Benign prostatic hypertrophy. Without any lower urinary tract symptomatology Continue Flomax now at twice daily. 9. History of nephrolithiasis, stable. 10. Gastrointestinal prophylaxis. Continue Pepcid. 11. DVT prophylaxis on long-term Xarelto,
--- NOTE | 2018-05-31 12:41 | P.PN ---
Subjective Progress Note Date: 05/31/18 This is a 77-year-old pleasant gentleman patient of Dr. 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 This occurred about 1 week ago off and on, occurring at rest he awoken one night with the chest pain. This lasted for approximately 20 minutes, thereafter he had several episodes for the past few days, his last chest pain was yesterday, with routine daily activities. Asians pain was characterize as chest pressure, left side of the chest, no significant radiation. Patient denies any cough no fever no chills, patient denies any dysphagia no lower extremity edema. Emergency room, EKG shows first-degree AV block, no acute changes, chest x-ray shows diffuse interstitial prominence, likely chronic, hemoglobin of 16, WBC of 9.1, electrolytes are normal, creatinine 1.0, troponins are negative 1. Patient currently is heparinized, and is on nitro paste consults were made with cardiology 05/31:. he currently is chest pain-free Patient underwent a Lexiscan stress test today, imaging studies show stress-induced ischemia, cardiac cath will be needed for intervention, his troponins are negative 3, NTpro BNP of 129,, triglyceride of 4-44, LDL of 37. Echocardiogram shows EF 50 to 55% sinus rhythm , normal left ventricular size, mild concentric LVH, apex hypokinesia, thickened aortic valve child leaflet mild mitral calcification right ventricle systolic pressure 35 no pericardial effusion Cardiology is following closely . Objective - Vital Signs Vital signs: Vital Signs Temp 98.1 F 05/31/18 08:00 Pulse 66 05/31/18 08:00 Resp 16 05/31/18 08:00 BP 131/74 05/31/18 08:00 Pulse Ox 99 05/31/18 08:00 Intake & Output 05/30/18 05/31/18 05/31/18 18:59 06:59 18:59 Intake Total 133.057 0 Balance 133.057 0 Weight 82.554 kg 84 kg Intake: Intake, IV Titration 133.057 Amount Heparin Sod,Pork in 0.45% 133.057 NaCl 25,000 unit In 0.45 % NaCl 1 500ml.bag @ 12 UNITS/KG/HR 19.81 mls/hr IV .Q24H ABI Rx#: [id number] Oral 0 Other: # Voids 1 - Constitutional General appearance: Present: cooperative, obese - EENT Eyes: Present: anicteric sclerae, EOMI, dentition normal ENT: Present: NA/AT, normal oropharynx - Neck Neck: Present: normal ROM - Respiratory Respiratory: bilateral: CTA, negative: diminished, dullness, rales, rhonchi - Cardiovascular Rhythm: regular Heart sounds: normal: S1, S2 Abnormal Heart Sounds: Present: systolic murmur. Absent: diastolic murmur, rub , S3 Gallop, S4 Gallop, click, other - Gastrointestinal General gastrointestinal: Present: normal bowel sounds, soft - Integumentary Integumentary: Present: decreased turgor, normal - Neurologic Neurologic: Present: CNII-XII intact - Musculoskeletal Musculoskeletal: Present: gait normal, strength equal bilaterally - Psychiatric Psychiatric: Present: A&O x's 3, appropriate affect, intact judgment & insight - Labs CBC & Chem 7: 05/31/18 02:32 05/31/18 02:32 Labs: Abnormal Lab Results - Last 24 Hours (Table) 05/30/18 05/30/18 05/30/18 Range/Units 14:30 14:30 23:04 PT 13.0 H (9.0-12.0) sec INR 1.4 H (<1.2) APTT 30.3 H 47.3 H (22.0-30.0) sec Glucose 135 H (74-99) mg/dL Triglycerides (<150) mg/dL HDL Cholesterol (40-60) mg/dL 05/31/18 05/31/18 Range/Units 02:32 02:32 PT (9.0-12.0) sec INR (<1.2) APTT (22.0-30.0) sec Glucose 109 H (74-99) mg/dL Triglycerides 244 H (<150) mg/dL HDL Cholesterol 35 L (40-60) mg/dL Assessment and Plan Plan: 1. Unstable angina, with known history of CAD, history of ischemic cardiomyopathy patient currently is on IV heparin, and Nitropaste. Patient would be monitored serially with troponins, echocardiogram, cardiology consultation. Continue on beta blockers, and aspirin lipid panel to be done, patient will be requiring a stress test secondary to symptoms, his last cardiac cath was [place] [address] murphy continue on isosorbide 30 mg daily and Toprol 75 mg twice a day 3. Paroxysmal atrial fibrillation with known history of nonsustained ventricular tachycardia, was started by Dr. murphy in the past, with the EP study and ablation that was not successful 2. 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 No current symptoms Patient s on Xarelto. 4.. History of coronary artery disease status post coronary artery bypass graft. Patient's had a recent heart catheterization done in 2012 that showed occluded graft to the obtuse marginal in the right coronary artery and patent left internal mammary artery to the LAD. Continue beta howie. Cardiology consult is in place. Continue LEAH inhibitor as well.. 5 Moderate left ventricular dysfunction. Last known EF was 45%, echocardiogram is requested to this admission Continue beta howie. 6. Hypertension hypertensive cardiovascular disease. Continue Zestril 20 mg daily and Toprol-XL 50 mg daily. 7. Hyperlipidemia. Continue Lipitor [address] Priest has discontinued Lopid 600 mg one month ago 8. Benign prostatic hypertrophy. Without any lower urinary tract symptomatology Continue Flomax now at twice daily. 9. History of nephrolithiasis, stable. 10. Gastrointestinal prophylaxis. Continue Pepcid. 11. DVT prophylaxis on long-term Xarelto,
[2018-05-31] MEDS ORDERED: ALPRAZolam 0.5 MG TAB PO PRN (12:44)
[2018-05-31] MEDS ORDERED: ALPRAZolam 0.25 MG TAB PO PRN (12:44)
[2018-05-31] MEDS ORDERED: NITROGLYCERIN SL TABS 0.4 MG TAB SUBLINGUAL PRN (12:44)
[2018-05-31] MEDS ORDERED: SODIUM CHLORIDE 0.9% 1,000 ML in EMPTY BAG 1 BAG IV ONE (12:44)
[2018-05-31] MEDS: TAMSULOSIN 0.4 MG CAP.ER.24H PO SCH (20:37)
[2018-06-01 03:08] LABS: Hemoglobin A1C 5.9 % (4.0-6.0)
[2018-06-01] MEDS: ATORVASTATIN 20 MG TAB PO SCH (04:59)
[2018-06-01] MEDS: ASPIRIN 81 MG PO SCH (04:59)
[2018-06-01] MEDS: METOPROLOL SUCCINATE (ER) 25 MG TAB.ER.24H PO SCH ×2 (06:31→21:32)
[2018-06-01 06:36] LABS: Basophils # (A) 0.1 k/uL (0-0.2); Basophils % (A) 1 %; Eosinophils # (A) 0.3 k/uL (0-0.7); Eosinophils % (A) 4 %; HCT 50.8 % (39.0-53.0); HGB 16.6 gm/dL (13.0-17.5); Lymphocytes # (A) 2.4 k/uL (1.0-4.8); Lymphocytes % (A) 26 %; MCH 30.9 pg (25.0-35.0); MCHC 32.7 g/dL (31.0-37.0); MCV 94.3 fL (80.0-100.0); Mean Platelet Volume 6.6; Monocytes # (A) 0.6 k/uL (0-1.0); Monocytes % (A) 7 %; Neutrophils # (A) 5.4 k/uL (1.3-7.7); Neutrophils % (A) 60 %; Platelet Count 206 k/uL (150-450); RBC 5.39 m/uL (4.30-5.90); RDW 13.1 % (11.5-15.5); WBC 9.1 k/uL (3.8-10.6)
[2018-06-01 06:48] LABS: Calcium 9.2 mg/dL (8.4-10.2); Potassium 4.7 mmol/L (3.5-5.1)
[2018-06-01] MEDS ORDERED: ATORVASTATIN 80 MG TAB PO ONE (09:00)
[2018-06-01] MEDS ORDERED: ASPIRIN 325 MG TAB PO ONE (09:00)
[2018-06-01] MEDS ORDERED: IV FLUID CONTINUATION 1,000 ML IV ONE (09:56)
[2018-06-01] MEDS ORDERED: MIDAZOLAM 2 MG/2 ML VIAL ONE (10:01)
[2018-06-01] MEDS ORDERED: MIDAZOLAM 2 MG/2 ML VIAL IV ONE (10:02)
[2018-06-01] MEDS ORDERED: fentaNYL (PF) 50 MCG/ML 2 ML AMP ONE (10:07)
[2018-06-01] MEDS ORDERED: LIDOCAINE 1% INJ 10MG/ML (20 ML MDV) SQ ONE (10:07)
[2018-06-01] MEDS ORDERED: fentaNYL (PF) 50 MCG/ML 2 ML AMP IV ONE (10:09)
--- NOTE | 2018-06-01 10:27 | P.PN ---
Subjective Progress Note Date: 06/01/18 This is a 77-year-old pleasant gentleman patient of Dr. 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 This occurred about 1 week ago off and on, occurring at rest he awoken one night with the chest pain. This lasted for approximately 20 minutes, thereafter he had several episodes for the past few days, his last chest pain was yesterday, with routine daily activities. Asians pain was characterize as chest pressure, left side of the chest, no significant radiation. Patient denies any cough no fever no chills, patient denies any dysphagia no lower extremity edema. Emergency room, EKG shows first-degree AV block, no acute changes, chest x-ray shows diffuse interstitial prominence, likely chronic, hemoglobin of 16, WBC of 9.1, electrolytes are normal, creatinine 1.0, troponins are negative 1. Patient currently is heparinized, and is on nitro paste consults were made with cardiology 05/31:. he currently is chest pain-free Patient underwent a Lexiscan stress test today, imaging studies show stress-induced ischemia, cardiac cath will be needed for intervention, his troponins are negative 3, NTpro BNP of 129,, triglyceride of 4-44, LDL of 37. Echocardiogram shows EF 50 to 55% sinus rhythm , normal left ventricular size, mild concentric LVH, apex hypokinesia, thickened aortic valve child leaflet mild mitral calcification right ventricle systolic pressure 35 no pericardial effusion Cardiology is following closely . 06/01: He is currently chest pain-free at this time. He will be undergoing a cardiac catheterization today. Patient denies chest pain to the night, no nausea or vomiting, no shortness of breath. Patient's currently on telemetry. Objective - Vital Signs Vital signs: Vital Signs Temp 97.5 F L 06/01/18 07:43 Pulse 57 L 06/01/18 07:43 Resp 16 06/01/18 07:43 BP 146/65 06/01/18 07:43 Pulse Ox 95 06/01/18 07:43 Intake & Output 05/31/18 06/01/18 06/01/18 18:59 06:59 18:59 Intake Total 240 325 0 Balance 240 325 0 Weight 82.3 kg Intake: Intake, IV Titration 85 Amount Sodium Chloride 0.9% 1, 85 000 ml In Empty Bag 1 bag @ 1 ML/KG/HR 84 mls/hr IV .[id number] ONE Rx#: [id number] Oral 240 0 Blood Product 240 Other: Voiding Method Toilet # Voids 1 - Constitutional General appearance: Present: cooperative, no acute distress - EENT Eyes: Present: EOMI, dentition normal ENT: Present: NA/AT, normal oropharynx - Neck Neck: Present: normal ROM - Respiratory Respiratory: bilateral: CTA - Cardiovascular Rhythm: regular Heart sounds: normal: S1, S2 Abnormal Heart Sounds: Present: systolic murmur - Gastrointestinal General gastrointestinal: Present: normal bowel sounds, soft - Integumentary Integumentary: Present: normal, normal turgor - Neurologic Neurologic: Present: CNII-XII intact - Musculoskeletal Musculoskeletal: Present: gait normal, strength equal bilaterally - Psychiatric Psychiatric: Present: A&O x's 3, appropriate affect, intact judgment & insight - Labs CBC & Chem 7: 06/01/18 06:04 06/01/18 06:04 Labs: Abnormal Lab Results - Last 24 Hours (Table) 05/31/18 06/01/18 Range/Units 02:32 06:04 Chloride 110 H (98-107) mmol/L Glucose 100 H (74-99) mg/dL Triglycerides 244 H (<150) mg/dL HDL Cholesterol 35 L (40-60) mg/dL Assessment and Plan (1) Unstable angina Current Visit: Yes Status: Acute Code(s): I20.0 - UNSTABLE ANGINA SNOMED Code(s): 1655030 (2) Atrial fibrillation Current Visit: No Status: Acute Code(s): I48.91 - UNSPECIFIED ATRIAL FIBRILLATION SNOMED Code(s): 45541735 (3) Coronary artery disease involving coronary bypass graft Current Visit: No Status: Chronic Code(s): I25.810 - ATHEROSCLEROSIS OF CABG W/O ANGINA PECTORIS SNOMED Code(s): 993452124 Plan: 1. Unstable angina, with known history of CAD, history of ischemic cardiomyopathy patient is currently on IV heparin and Nitropaste. Patient is having a cardiac cath done today. We will continue on beta blockers and aspirin.Dr. murphy continue on isosorbide 30 mg daily and Toprol 75 mg twice a day 2. Paroxysmal atrial fibrillation with known history of nonsustained ventricular tachycardia, was started by Dr. murphy in the past, with the EP study and ablation that was not successful 3.. 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 No current symptoms Patient s on Xarelto. 4.. History of coronary artery disease status post coronary artery bypass graft. Patient's had a recent heart catheterization done in 2012 that showed occluded graft to the obtuse marginal in the right coronary artery and patent left internal mammary artery to the LAD. Continue beta howie. Cardiac cath scheduled for today. Continue LEAH inhibitor as well.. 5 Moderate left ventricular dysfunction. Echocardiogram gram completed 05/31 current EF 50-55% Continue beta howie. 6. Hypertension hypertensive cardiovascular disease. Continue Zestril 20 mg daily and Toprol-XL 50 mg daily. 7. Hyperlipidemia. Continue Lipitor [address] Priest has discontinued Lopid 600 mg one month ago 8. Benign prostatic hypertrophy. Without any lower urinary tract symptomatology Continue Flomax now at twice daily. 9. History of nephrolithiasis, stable. 10. Gastrointestinal prophylaxis. Continue Pepcid. 11. DVT prophylaxis on long-term Xarelto, Time with Patient: Less than 30 (DNP note has been reviewed and discussed with Dr. James and the impression and plan of care has been directed as dictated.)
[2018-06-01] MEDS ORDERED: IOPAMIDOL-370 125ML BTL INJ ONE (10:35)
[2018-06-01] MEDS ORDERED: RX INFO: IV CONTRAST WAS GIVEN 1 EACH MISC MISCELLANE PRN (10:39)
[2018-06-01] MEDS: MULTIVITAMINS, THERA 1 EACH TAB PO SCH (12:45)
[2018-06-01] MEDS: ISOSORBIDE MONONITRATE ER 30 MG TAB.ER.24H PO SCH (12:59)
--- NOTE | 2018-06-01 14:40 | CC ---
CARDIAC CATHETERIZATION REPORT INDICATION: Unstable angina with abnormal stress test showing ischemia involving inferior wall. PROCEDURE NOTE: After obtaining informed consent, left heart catheterization and coronary angiogram and selective injection of the bypass graft was performed via the right femoral artery using standard Lily catheters. Patient tolerated the procedure well without any obvious immediate complications. A femoral angiogram was obtained and Angio-Seal was deployed for hemostasis. MANRIQUE was engaged using a MANRIQUE catheter. Patient received moderate conscious sedation. Total sedation time was 27 minutes. FINDINGS: 1. HEMODYNAMICS: Left ventricular end-diastolic pressure is 16 mm. There is no significant gradient across the aortic valve. 2. LEFT VENTRICULOGRAM: Left ventriculogram is not performed. 3. ANGIOGRAPHIC DATA: ENTERPRISE CORONARY ARTERY: The left main coronary artery appears calcified but is free of stenosis. Divides into left anterior descending coronary artery and circumflex coronary artery. Circumflex coronary artery shows diffuse disease. There is a 70%-80% stenosis involving the ostium and in the middle portion of the circumflex coronary artery. LAD appears diffusely diseased. There is a 70%-80% stenosis in the proximal part. Right coronary artery is totally occluded in its proximal portion. 1. SELECTIVE INJECTION OF THE VENOUS GRAFT: Venous graft to the OM is chronically occluded. 2. Venous graft to the right coronary artery is occluded. 3. MANRIQUE to LAD appears patent. There is a lesion within the [place] LAD distal to the anastomotic site. CONCLUSION: 1. [place] 3-vessel coronary artery disease with patent MANRIQUE to LAD with disease involving [place] LAD. 2. 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 PLAN: Will continue with optimal medical therapy with aspirin, nitrates, beta-blockers and continue the Xarelto that he was on at home. Patient will be discharged home tomorrow. I reviewed angiographic data with Dr. Franklin, the on-call sternman. If patient continues to have symptoms, we may bring him back and attempt angioplasty of [place] circumflex coronary artery. MMODL / IJN: [id number] /
[2018-06-01] MEDS: TAMSULOSIN 0.4 MG CAP.ER.24H PO SCH (21:32)
[2018-06-02 06:43] LABS: Basophils # (A) 0.1 k/uL (0-0.2); Basophils % (A) 1 %; Eosinophils # (A) 0.3 k/uL (0-0.7); Eosinophils % (A) 3 %; HCT 47.8 % (39.0-53.0); HGB 15.4 gm/dL (13.0-17.5); Lymphocytes # (A) 2.4 k/uL (1.0-4.8); Lymphocytes % (A) 25 %; MCH 30.4 pg (25.0-35.0); MCHC 32.2 g/dL (31.0-37.0); MCV 94.5 fL (80.0-100.0); Mean Platelet Volume 6.6; Monocytes # (A) 0.6 k/uL (0-1.0); Monocytes % (A) 7 %; Neutrophils # (A) 6.1 k/uL (1.3-7.7); Neutrophils % (A) 63 %; Platelet Count 200 k/uL (150-450); RBC 5.06 m/uL (4.30-5.90); WBC 9.7 k/uL (3.8-10.6)
[2018-06-02 06:48] LABS: Calcium 8.7 mg/dL (8.4-10.2); Potassium 4.4 mmol/L (3.5-5.1)
[2018-06-02 08:21] VITALS: BP 148/74; PULSE 63; RESP 18; TEMP 96.4
[2018-06-02] MEDS: ASPIRIN 81 MG PO SCH (08:50)
[2018-06-02] MEDS: ATORVASTATIN 20 MG TAB PO SCH (08:50)
[2018-06-02] MEDS: METOPROLOL SUCCINATE (ER) 25 MG TAB.ER.24H PO SCH (08:50)
[2018-06-02] MEDS ORDERED: ISOSORBIDE MONONITRATE ER 60 MG TAB.ER.24H PO SCH (09:00)
--- NOTE | 2018-06-02 11:33 | P.PN ---
Subjective Progress Note Date: 06/02/18 Principal diagnosis: Chest pain, CAD This is a pleasant 77-year-old gentleman with a history of CAD status post CABG who presented to the emergency department for evaluation of chest pain. He was found to have positive stress test which showed stress-induced ischemia in the inferior wall. He subsequently underwent cardiac catheterization which showed patent MANRIQUE to the LAD and chronic occlusion of the vein graft to the RCA and OM. Echocardiogram showed an ejection fraction of 50-55% with hypokinesis in the apex. Patient has been recommended Medical therapy. Patient has been chest pain-free. He's been up ambulating without difficulties. Objective - Vital Signs Vital signs: Vital Signs Temp 96.4 F L 06/02/18 08:18 Pulse 63 06/02/18 08:18 Resp 18 06/02/18 08:18 BP 148/74 06/02/18 08:18 Pulse Ox 95 06/02/18 08:18 Intake & Output 06/01/18 06/02/18 06/02/18 18:59 06:59 18:59 Intake Total 1020 490 Output Total 400 Balance 620 490 Weight 82.9 kg Intake: IV 100 10 0.9 10 Intake, IV Titration 300 Amount IV Fluid Continuation 1, 300 000 ml @ 0 mls/hr IV .[place] ONE Rx#:[id number] Oral 620 480 Output: Urine 400 Other: Voiding Method Toilet # Voids 4 # Bowel Movements 0 0 - Exam PHYSICAL EXAMINATION: HEENT: [Head is atraumatic, normocephalic. Pupils equal, round. Neck is supple. There is no elevated jugular venous pressure.] HEART EXAMINATION: [Heart sounds regular, S1 and S2 normal. No murmur or gallop heard.] CHEST EXAMINATION:[ Lungs are clear to auscultation and precussion. No chest wall tenderness is noted on palpation or with deep breathing.] ABDOMEN: [ Soft, nontender. Bowel sounds are heard. No organomegaly noted]. EXTREMITIES:[ 2+ peripheral pulses with no evidence of peripheral edema and no calf tenderness noted. Right femoral puncture site soft without ecchymosis or hematoma.]. NEUROLOGIC [patient is awake, alert and oriented x3.] . - Labs CBC & Chem 7: 06/02/18 06:08 06/02/18 06:08 Labs: Abnormal Lab Results - Last 24 Hours (Table) 06/02/18 Range/Units 06:08 Chloride 110 H (98-107) mmol/L Assessment and Plan Assessment: #1 symptoms of chest pain #2 status post cardiac catheterization which showed patent MANRIQUE to LAD with disease involving lower [place] LAD, chronic occlusion of the vein grafts to the right and OM branch. #3 history of prior CABG #4 paroxysmal atrial fibrillation #5 hypertension #6 hyperlipidemia Plan: From cardiology perspective, medications are reviewed and we'll continue the same. Continue oral anticoagulation. Patient will follow-up in the office with Dr. Montano as an outpatient. The above dictated assessment and findings were discussed with signing physician. The impression and plan of care have been directed as dictated. Katja Black, Nurse Practitioner, acting as scribe for signing physician.
--- NOTE | 2018-06-02 11:36 | P.DS ---
Providers Date of admission: 05/30/18 16:23 Attending physician: Marcela Gutierrez Consults: 05/30/18 16:24 Consult Physician Routine Consulting Provider: Dorian Rooney Consult Reason/Comments: Unstable angina Do you want consulting provider notified?: Yes Primary care physician: David Priest - Discharge Diagnosis(es) (1) Unstable angina Status: Acute (2) Atrial fibrillation Status: Acute (3) Coronary artery disease involving coronary bypass graft Status: Chronic Hospital Course: This is a 77-year-old pleasant gentleman patient of Dr. 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 This occurred about 1 week ago off and on, occurring at rest he awoken one night with the chest pain. This lasted for approximately 20 minutes, thereafter he had several episodes for the past few days, his last chest pain was yesterday, with routine daily activities. Asians pain was characterize as chest pressure, left side of the chest, no significant radiation. Patient denies any cough no fever no chills, patient denies any dysphagia no lower extremity edema. Emergency room, EKG shows first-degree AV block, no acute changes, chest x-ray shows diffuse interstitial prominence, likely chronic, hemoglobin of 16, WBC of 9.1, electrolytes are normal, creatinine 1.0, troponins are negative 1. Patient currently is heparinized, and is on nitro paste consults were made with cardiology 05/31:. he currently is chest pain-free Patient underwent a Lexiscan stress test today, imaging studies show stress-induced ischemia, cardiac cath will be needed for intervention, his troponins are negative 3, NTpro BNP of 129,, triglyceride of 4-44, LDL of 37. Echocardiogram shows EF 50 to 55% sinus rhythm , normal left ventricular size, mild concentric LVH, apex hypokinesia, thickened aortic valve child leaflet mild mitral calcification right ventricle systolic pressure 35 no pericardial effusion Cardiology is following closely . 06/01: He is currently chest pain-free at this time. He will be undergoing a cardiac catheterization today. Patient denies chest pain to the night, no nausea or vomiting, no shortness of breath. Patient's currently on telemetry. 9/30: Patient is currently chest pain-free at this time. He had a cardiac catheterization completed yesterday showing [place] triple-vessel disease, patent MANRIQUE to LAD, chronically occluded SVG to OM and SVG to RCA, and diffuse disease to circumflex. Patient will be managed medically at this time. If symptoms continue, may return for attempted angioplasty of needed circumflex. Imdur was increased to 60 mg daily and metoprolol increased to 75 mg twice a day. Patient to follow-up in the next couple days with Dr. Priest and Dr. Franklin in 1 week. Discharge Diagnosis 1. Unstable angina, with known history of CAD, history of ischemic cardiomyopathy 2. Paroxysmal atrial fibrillation with known history of nonsustained ventricular tachycardia 3.. 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 4.. History of coronary artery disease status post coronary artery bypass graft. 5 Moderate left ventricular dysfunction. 6. Hypertension hypertensive cardiovascular disease. 7. Hyperlipidemia. 8. Benign prostatic hypertrophy. 9. History of nephrolithiasis Disposition: Home with self care CC: Dr. Priest Impression and plan of care have been directed as dictated by the signing physician. Kasandra Ball nurse practitioner acting as scribe for signing physician. Patient Condition at Discharge: Stable Plan - Discharge Summary Discharge Rx Participant: No New Discharge Prescriptions: New Metoprolol Succinate (ER) [Toprol XL] 75 mg PO BID #60 tab.er.24h Continue Multivitamin [Men's Multi-Vitamin] 1 tab PO DAILY Ubidecarenone [Coq-10] 200 mg PO DAILY Atorvastatin [Lipitor] 20 mg PO DAILY Tamsulosin [Flomax] 0.4 mg PO HS Polyethylene Glycol 3350 [Miralax] 0.5 tsp PO QAM Aspirin EC [Ecotrin Low Dose] 81 mg PO DAILY Rivaroxaban [Xarelto] 20 mg PO DAILY Nitroglycerin Sl Tabs [Nitrostat] 0.4 mg SUBLINGUAL Q5M PRN #0 tab PRN Reason: Chest Pain ALPRAZolam [Xanax] 0.25 mg PO HS PRN PRN Reason: Insomnia Polyethylene Glycol 3350 [Miralax] 1 tsp PO HS Acetaminophen Tab [Tylenol] 650 mg PO Q6H PRN PRN Reason: Pain Changed Isosorbide Mononitrate ER [Imdur] 60 mg PO DAILY #0 Discontinued Metoprolol Succinate (ER) [Toprol XL] 75 mg PO BID Discharge Medication List Multivitamin [Men's Multi-Vitamin] 1 tab PO DAILY 04/11/14 [History] Ubidecarenone [Coq-10] 200 mg PO DAILY 04/13/14 [History] Atorvastatin [Lipitor] 20 mg PO DAILY 10/15/14 [History] Tamsulosin [Flomax] 0.4 mg PO HS 10/15/14 [History] Aspirin EC [Ecotrin Low Dose] 81 mg PO DAILY 06/16/16 [History] Polyethylene Glycol 3350 [Miralax] 0.5 tsp PO QAM 06/16/16 [History] Rivaroxaban [Xarelto] 20 mg PO DAILY 06/16/16 [History] Nitroglycerin Sl Tabs [Nitrostat] 0.4 mg SUBLINGUAL Q5M PRN #0 tab 06/17/16 [Rx] ALPRAZolam [Xanax] 0.25 mg PO HS PRN 05/30/18 [History] Acetaminophen Tab [Tylenol] 650 mg PO Q6H PRN 05/30/18 [History] Polyethylene Glycol 3350 [Miralax] 1 tsp PO HS 05/30/18 [History] Isosorbide Mononitrate ER [Imdur] 60 mg PO DAILY #0 06/02/18 [Rx] Metoprolol Succinate (ER) [Toprol XL] 75 mg PO BID #60 tab.er.24h 06/02/18 [Rx] Follow up Appointment(s)/Referral(s): Yrn Franklin MD [STAFF PHYSICIAN] - 1 Week David Priest MD [Primary Care Provider] - 06/07/18 11:00 am (Sunday with Liz CODY) Patient Instructions/Handouts: *Surgery [facility] - After Heart Catheterization - Account Manager Sales Representative Instructions Discharge Disposition: HOME SELF-CARE
== END 2018-06-02 10:10 | disposition home or self-care (01) | DRG 287 ==
LOC: EC 15:14 → 6SEL 16:23
PROVIDERS: ADMIT Family Medicine; ATTEND Family Medicine
PROC: 4A023N7 Measurement of Cardiac Sampling and Pressure, Left Heart, Percutaneous Approach (ICD-10-PCS; principal; 2018-06-02)
PROC: B2131ZZ Fluoroscopy of Multiple Coronary Artery Bypass Grafts using Low Osmolar Contrast (ICD-10-PCS; 2018-06-02)
PROC: B2111ZZ Fluoroscopy of Multiple Coronary Arteries using Low Osmolar Contrast (ICD-10-PCS; 2018-06-02)
PROC: B2151ZZ Fluoroscopy of Left Heart using Low Osmolar Contrast (ICD-10-PCS; 2018-06-02)
DX: I25.710 Atherosclerosis of autologous vein coronary artery bypass graft(s) with unstable angina pectoris (principal); Z95.1 Presence of aortocoronary bypass graft; E78.00 Pure hypercholesterolemia, unspecified; E78.1 Pure hyperglyceridemia; I11.9 Hypertensive heart disease without heart failure; I25.2 Old myocardial infarction; I25.5 Ischemic cardiomyopathy; I44.0 Atrioventricular block, first degree; I48.0 Paroxysmal atrial fibrillation; N40.0 Benign prostatic hyperplasia without lower urinary tract symptoms; Z79.01 Long term (current) use of anticoagulants; Z79.82 Long term (current) use of aspirin; Z79.899 Other long term (current) drug therapy; Z80.3 Family history of malignant neoplasm of breast; Z82.49 Family history of ischemic heart disease and other diseases of the circulatory system; Z86.79 Personal history of other diseases of the circulatory system; Z87.442 Personal history of urinary calculi; Z80.0 Family history of malignant neoplasm of digestive organs; Z88.0 Allergy status to penicillin; I08.0 Rheumatic disorders of both mitral and aortic valves; Z85.22 Personal history of malignant neoplasm of nasal cavities, middle ear, and accessory sinuses; M19.90 Unspecified osteoarthritis, unspecified site; Z85.828 Personal history of other malignant neoplasm of skin; Z87.01 Personal history of pneumonia (recurrent)
CPT/HCPCS: 36415; 71046; 78452; 80048; 80053; 80061; 82550; 82553; 83036; 83735; 83880; 84484; 85025; 85610; 85730; 93005; 93017; 93306; 93459; 96374; 99291

== ENCOUNTER → 2019-04-04 | Outpatient (CLI) | payer MEDICARE ==
--- NOTE | 2019-04-04 12:05 | CT ---
EXAMINATION TYPE: CT sinus. DATE OF EXAM: 04/04/2019 COMPARISON: None HISTORY: Nose bleeds, chronic sinusitis CT DLP: 630.3 mGycm. Automated Exposure Control for Dose Reduction was Utilized. TECHNIQUE: CT scan of the sinuses is performed without contrast, axial images are obtained, coronal r eformatted images are also reviewed. FINDINGS: The paranasal sinuses are remarkable for opacification of the left maxillary sinus, portio ns of the ethmoid air cells and frontal sinus and the left. There is some questionable bone remodelin g along the medial left maxillary sinus wall, there is some internal calcification, debris suspected within the left maxillary sinus, there may be some bone erosion medially.There is a belia bullosa on the right. Some atrophy noted in the visualized brain. The globes are intact bilaterally. IMPRESSION: Possible underlying mucocele,, there is finding of underlying chronic sinusitis and addit ional findings above
== END | disposition home or self-care (01) ==
LOC: RADCTMAIN 11:19
PROVIDERS: ATTEND Otolaryngology
DX: J01.90 Acute sinusitis, unspecified (principal)
CPT/HCPCS: 70486

== ENCOUNTER 2019-04-30 09:21 | Day surgery (SDC) | payer MEDICARE ==
[2019-04-24 14:49] VITALS: BMI 28.8
[~2019-04-30 09:21] MED LIST: CLINDAMYCIN 600 MG in DEXTROSE 5% IN WATER 50 ML IVPB ONE; DEXAMETHASONE SOD PHOSPHATE 10 MG/ML 1 ML VIAL IV ONE; DEXAMETHASONE SOD PHOSPHATE 4 MG/ML 1 ML VIAL IV ONE; FAMOTIDINE 20 MG/2 ML VIAL IV ONE; HYDROmorphone 0.5 MG/0.5 ML SYRINGE IVP PRN; LACTATED RINGERS 1,000 ML IV SCH; LIDOCAINE 1% 20 ML VIAL (10MG/ML) FOR IV START INTRADERMA PRN; MIDAZOLAM 2 MG/2 ML VIAL IV PRN; ONDANSETRON 4 MG/2 ML VIAL IVP ONE; SCOPOLAMINE 1.5MG/72HR PATCH TRANSDERM ONE; fentaNYL (PF) 50 MCG/ML 2 ML AMP IV PRN
[2019-04-30] MEDS: OXYMETAZOLINE 0.05% NASL SPRAY 1 SPRAY BOTTLE NASAL ONE ×5 (09:50→10:10)
[2019-04-30] MEDS ORDERED: LACTATED RINGERS 1,000 ML IV ONE ×2 (10:01→12:02)
[2019-04-30] MEDS ORDERED: SUCCINYLCHOLINE CHLORIDE 100 MG/5 ML SYR IV ONE (11:24)
[2019-04-30] MEDS ORDERED: PROPOFOL 10 MG/ML 20 ML VIAL IV ONE (11:24)
[2019-04-30] MEDS ORDERED: DEXAMETHASONE SOD PHOS (MDV) 100 MG/10 ML VIAL ONE (11:24)
[2019-04-30] MEDS ORDERED: fentaNYL (PF) 50 MCG/ML 2 ML AMP ONE (11:24)
[2019-04-30] MEDS ORDERED: LIDOCAINE 1% INJ 10MG/ML (20 ML MDV) ONE (11:24)
[2019-04-30] MEDS ORDERED: PHENYLEPHRINE-0.9% NACL SYG 1 MG/10 ML SYRINGE ONE (11:24)
[2019-04-30] MEDS ORDERED: ePHEDrine SULFATE/0.9% NACL/PF 50 MG/5 ML SYRINGE IV ONE (11:24)
[2019-04-30] MEDS ORDERED: MIDAZOLAM 2 MG/2 ML VIAL ONE (11:24)
[2019-04-30] MEDS ORDERED: LIDOCAINE 1%-EPI 1:100,000 20 ML VIAL SQ ONE ×2 (11:29→11:49)
--- NOTE | 2019-04-30 12:48 | P.OP ---
Date of Procedure: 04/30/19 Preoperative Diagnosis: Deviated nasal septum Inferior turbinate hypertrophy Chronic left-sided sinusitis Postoperative Diagnosis: Same Procedure(s) Performed: Septoplasty Outfractured and submucous resection of the inferior turbinates Left-sided endoscopic sinus surgery including left maxillary antrostomy, left anterior posterior ethmoidectomy left frontal sinusotomy including balloon sinus plasty Anesthesia: BOO Surgeon: Lamine Campbell Estimated Blood Loss (ml): 10 Pathology: other (Nasal septal bone and cartilage and sinus contents) Condition: stable Disposition: PACU Indications for Procedure: This is 78-year-old white male whose had difficulties with chronic nasal airway section especially on the left as well as chronic sinusitis with chronic drainage and intermittent bleeding from the left nasal cavity Operative Findings: Nasal septum deviated to the left, chronic sinusitis left maxillary ethmoid and frontal sinus Description of Procedure: The patient was brought into the operative suite and placed in a supine position. The patient underwent induction of general anesthesia with oral endotracheal intubation without difficulty. The patient was prepped and draped in the usual aseptic fashion with the orbits in the operating field for monitoring to the case and the computed tomography scan was on the computer screen for review throughout the case. 1% lidocaine with 1 :100,000 epinephrine was infused submucosally into both sides of the nasal septum as well as the lateral nasal wall and anterior tips of the middle turbinates. While this was taking vasoconstrictive effect the inferior turbinates were infractured with [place] elevator and partial submucous resection of the inferior turbinates was performed with a portion of the submucosal soft tissue and the inferior turbinate bone removed with Coblation device. The inferior turbinates were then outfractured with the [place] elevator. A left hemitransfixion incision was then made with the mucoperichondrial and mucoperiosteal flap on the left elevated. The bony cartilaginous junction was disarticulated and the mucoperiosteal flap on the right was elevated. Bony nasal septal deformities were removed with Shavonne forceps and an inferior car tilaginous strip was removed leaving a full 1.5 cm caudal strut. Checking intranasally this corrected the nasoseptal deformities and the hemitransfixion incision was closed with a running 4-0 chromic suture. Full 0 endoscopic examination is performed bilaterally. Beginning on the left, the middle turbinate was medialized. The maxillary ostium was located with a ballpoint probe and an infundibulotomy was performed followed by uncinectomy. The maxillary antrostomy was enlarged at the expense of the anterior and posterior fontanelle taking care anteriorly not to injure the lacrimal bone. There was gross evidence of fungal sinusitis filling the left maxillary sinus which was cleaned with a curved suction and irrigated. This was also cultured. The left maxillary sinus was also evaluated with 30 and 70 endoscope. No procedures were necessitated on the right]. Left Anterior and posterior ethmoidectomy were then performed from anterior to posterior to the level of the skull base. The roof of the anterior ethmoid air cells were then cleaned from posterior to anterior using up-biting Blakesley forceps. A balloon sinuplasty of the frontal sinus was then performed using the entellus guided light wire technique. The frontal sinus was then explored with 30 endoscope. This was only performed on the left [Nasopore nasal dressing was placed in the middle meatus bilaterally under direct visualization]. 4-0 Vicryl quilting suture was used to coapt the nasal septal and therefore splints were not utilized. The patient was suctioned in oral gastric fashion and was allowed to emerge from general anesthesia having tolerated procedure well and was extubated in the operating suite and transferred to the postoperative recovery area in satisfactory condition.
--- NOTE | 2019-04-30 12:53 | P.PN ---
Progress Note - Text Progress Note Date: 04/30/19 Note that the left maxillary sinus was full of fungal disease with thinning of the medial wall of the maxillary sinus
[2019-04-30 12:59] VITALS: TEMP 97.4
[2019-04-30 13:21] VITALS: RESP 16
[2019-04-30 13:50] VITALS: BP 107/58; PULSE 77
== END 2019-04-30 14:12 | disposition home or self-care (01) ==
LOC: OR 09:21
PROVIDERS: ATTEND Otolaryngology
DX: J32.9 Chronic sinusitis, unspecified (principal); J34.2 Deviated nasal septum; J45.909 Unspecified asthma, uncomplicated; G47.30 Sleep apnea, unspecified; I10 Essential (primary) hypertension; E78.5 Hyperlipidemia, unspecified; I25.10 Atherosclerotic heart disease of native coronary artery without angina pectoris; Z95.1 Presence of aortocoronary bypass graft; I48.91 Unspecified atrial fibrillation; I25.2 Old myocardial infarction; Z87.442 Personal history of urinary calculi; M19.90 Unspecified osteoarthritis, unspecified site; Z80.3 Family history of malignant neoplasm of breast; Z80.0 Family history of malignant neoplasm of digestive organs; Z83.3 Family history of diabetes mellitus; Z82.3 Family history of stroke; Z79.01 Long term (current) use of anticoagulants; Z79.899 Other long term (current) drug therapy; Z79.82 Long term (current) use of aspirin; Z88.0 Allergy status to penicillin; Z88.8 Allergy status to other drugs, medicaments and biological substances
CPT/HCPCS: 88305; 88300; 87070; 87205; 87075; 87102; 30520; 30140; 31267; 31253; C1726; J2250; J1100 ×2; J2405; J2001; J3010; J2370; J0330; J2704

== ENCOUNTER → 2020-11-17 | Outpatient (CLI) | payer MEDICARE ==
--- NOTE | 2020-11-18 07:40 | MR ---
EXAMINATION TYPE: MR cspine/tspine/lspine wo con DATE OF EXAM: 11/17/2020 COMPARISON: NONE HISTORY: Spinal stenosis, myelopathy, leg weakness, numbness 3 months. TECHNIQUE: Multiplanar, multisequence imaging of the cervical, thoracic, and lumbar spine are all per formed without IV contrast. FINDINGS: C-SPINE: FINDINGS: There is levoconvex scoliotic curvature or positioning centered upper thoracic spine on cor onal images. Sagittal images of the cervical spine show the craniocervical junction to appear within normal limits. The cervical and upper thoracic spinal cord is normal in course, caliber, and signal. Vertebral alignment is satisfactory and sagittal images. The vertebral body and intravertebral dis k heights are normal. The bone marrow signal intensity is within normal limits. Axial images at C2-C3 level show some uncovertebral facet degenerative changes bilaterally causing as ymmetric mild left-sided neural foraminal narrowing. Axial images at C3-C4 level show uncovertebral facet degenerative changes bilaterally causing mild le ft and moderate right-sided neural foraminal narrowing. There is tiny right paracentral disc protrusi on mildly facing anterior thecal sac. Axial images at C4-C5 level appear within normal limits. Axial images at C5-C6 level showed small broad based posterior disc protrusion and uncovertebral face t degenerative changes bilaterally, minimal effacement anterior thecal sac. Patent bilateral neural f oramina. Axial images at C6-C7 level show focal right paracentral disc protrusion mildly facing anterior theca l sac, patent bilateral neural foramina. Axial images at C7-T1 level appear within normal limits. IMPRESSION: Multilevel degenerative changes as detailed above, largest disc herniation noted C6-C7 le porter. T-SPINE: FINDINGS: Coronal images show levoconvex scoliotic curvature centered upper to mid thoracic spine wit h reactive dextroconvex scoliotic curvature centered upper lumbar spine. Spinal cord shows AP diamete r narrowing due to disc herniation T6-T7 level sagittal image 8. Vertebral body heights and disc spa ce heights fairly well maintained. There is some artifact near T9-T10 level making evaluation at this level suboptimal, remainder levels bone marrow signal intensity is maintained. Mild to moderate mult ilevel anterior spurring is present. Axial images at T2-T3 level to small right paracentral disc protrusion effacing at the lateral thecal sac on image 15 corresponding to sagittal image 12. Tiny disc herniation T5-T6 level mildly effaces the anterior thecal sac sagittal image 9. Axial images at T6-T7 level show most prominent right paracentral disc protrusion with posterior ave lar tear effacing anterior thecal sac of the ventral surface of spinal cord on axial images 2 and 3 s eries 1201. Axial images at T9-T10 level show broad-based posterior disc protrusion with posterior annular tear e ffacing anterior thecal sac nearly up to ventral surface of spinal cord corresponding to sagittal leigh ge 8. Remainder thoracic levels but within normal limits. There is 5.8 cm exophytic thin-walled cyst right kidney upper pole level axial image 6 noted. IMPRESSION: Multilevel degenerative changes with largest disc herniations noted T6-T7 and T9-T10 leve ls. L-SPINE: Sagittal images of the lumbar spine show qnfx-ue-rycdiufp height loss involving the superior L3 endpl ate and anterior margin. No posterior retropulsion. No abnormal signal to suggest acute injury. There is subtle grade 1 retrolisthesis L1 on L2. There is more prominent grade 1 anterolisthesis L5 on S1. Multilevel disc desiccation with moderate to advanced disc space narrowing and vacuum disc phenomeno n L5-S1 level. Hvuj-sy-dztwabnx multilevel anterior spurring. Heterogeneous Modic type II endplate ch anges L2 and L3 levels. The conus medullaris is normal in position and signal ending L1-L2 disc space level. Axial images show T12-L1 level to appear within normal limits. Axial images at L1-L2 level show mild/moderate broad disc bulge effacing anterior thecal sac, patent bilateral neural foramina. Axial images at L2-L3 level tkps-mz-gvabpakr broad disc bulge effacing anterior thecal sac, there is asymmetric tmpc-ki-zqefjzst right-sided neural foraminal narrowing. Axial images at L3-L4 level shows tcut-lc-vailzaxp facet degenerative changes and ligamentum flavum h ypertrophy. There is mild to moderate broad disc bulge minimally effacing anterior thecal sac. There is mild bilateral anterior inferior neural foraminal narrowing. Axial images at L4-L5 level shows moderate facet degenerative changes and ligament flavum hypertrophy . There is mild broad disc bulge. Spinal canal preserved. Axial images at L5-S1 level show advanced facet degenerative changes bilaterally. There is moderate b road-based posterior disc protrusion. Spondylolisthesis. Mild left and more moderate to severe right- sided neural foraminal narrowing. Encroachment on right L5 nerve flow present sagittal image 12 corre sponding to axial image 3. Occasional smaller T2 hyperintense lesions throughout the right kidney favors additional small benign thin-walled cysts. Paraspinal muscle bulk maintained. IMPRESSION: Bilateral pars defect L5 level with spondylolisthesis L5-S1 level. Mild to moderate chron ic compression type fracture L3 level. Multilevel degenerative changes in the lumbar spine as detaile d above.
== END ==
LOC: RADMRIMAIN 20:28
PROVIDERS: ATTEND Psychiatry & Neurology Neurology
DX: M47.12 Other spondylosis with myelopathy, cervical region (principal); M47.16 Other spondylosis with myelopathy, lumbar region; M50.023 Cervical disc disorder at C6-C7 level with myelopathy; M43.16 Spondylolisthesis, lumbar region; M51.06 Intervertebral disc disorders with myelopathy, lumbar region; M51.04 Intervertebral disc disorders with myelopathy, thoracic region
CPT/HCPCS: 72141; 72146; 72148

== ENCOUNTER → 2020-12-09 | Outpatient (CLI) | payer MEDICARE ==
--- NOTE | 2020-12-10 03:44 | MR ---
EXAMINATION TYPE: MR brain wo con DATE OF EXAM: 12/09/2020 COMPARISON: None HISTORY: NPH, gait difficulties, non cva, bilateral hearing loss. Multiplanar multiecho imaging of the brain was performed without contrast. There is diffuse cerebral atrophy. There is no mass effect nor midline shift. There is no sign of int racranial hemorrhage. There is enlargement of the ventricles. There is no evidence of acute infarct o n the diffusion images. There is patchy increased signal in the periventricular white matter on the F LAIR images. This is coalescent and measures up to 1 cm in thickness. There is significant thinning of the corpus callosum. Sella turcica is normal. There is 3 mm focus of increased signal in the elina on the right side that could be small lacunar infarct. IMPRESSION: Cerebral atrophy. Extensive white matter changes consistent with chronic small vessel ischemia. Demye linating disease not excluded.
== END | disposition home or self-care (01) ==
LOC: RADMRIMAIN 14:36
PROVIDERS: ATTEND Psychiatry & Neurology Neurology
DX: G31.9 Degenerative disease of nervous system, unspecified (principal); I67.9 Cerebrovascular disease, unspecified
CPT/HCPCS: 70551

== ENCOUNTER 2021-02-15 12:43 | Emergency (ER) | payer MEDICARE ==
[2021-02-15 13:13] VITALS: BP 123/69; PULSE 79; RESP 18; TEMP 98
[2021-02-15] MEDS ORDERED: ACETAMINOPHEN TAB 500 MG TAB PO STA (14:11)
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
--- NOTE | 2021-02-15 15:13 | XR ---
EXAMINATION TYPE: XR tibia fibula RT DATE OF EXAM: 02/15/2021 COMPARISON: NONE HISTORY: Pain TECHNIQUE: Two views are submitted. FINDINGS: The osseous structures are intact. Diffuse osteopenia and narrowing of the knee joint. Vascular calci fication seen.. IMPRESSION: 1. No acute osseous abnormality.
--- NOTE | 2021-02-15 15:15 | XR ---
EXAMINATION TYPE: XR ankle complete RT DATE OF EXAM: 02/15/2021 COMPARISON: NONE HISTORY: Pain FINDINGS: Three views of the ankle demonstrate the ankle mortise to be intact and symmetric. The joint spaces are preserved. The osseous structures are intact. Bony densities adjacent to the medial malleolus a re most likely chronic. There is soft tissue swelling. Calcaneal spurs and soft tissue ossification n oted. Vascular calcification seen. IMPRESSION: 1. Tiny bony densities adjacent to the medial malleolus most likely chronic correlation with point te nderness recommended to exclude tiny avulsion fracture.
--- NOTE | 2021-02-15 15:27 | XR ---
EXAMINATION TYPE: XR foot complete RT DATE OF EXAM: 02/15/2021 COMPARISON: NONE HISTORY: Pain TECHNIQUE: Three views are submitted. FINDINGS: The osseous structures are intact. There is no acute fracture or dislocation. Severe arthropathy f irst MTP joint. Diffuse osteopenia. Vascular calcifications noted. Calcaneal spurs seen with soft tis tariq ossification.. IMPRESSION: 1. No acute fracture or dislocation. If symptoms persist, follow-up exam in 7 to 10 days could be ob tained. 2. Arthropathy. 3. Calcaneal spurs.
== END 2021-02-15 15:46 | disposition home or self-care (01) ==
LOC: EC 12:43
DX: S93.401A Sprain of unspecified ligament of right ankle, initial encounter (principal); E78.5 Hyperlipidemia, unspecified; I48.0 Paroxysmal atrial fibrillation; I25.10 Atherosclerotic heart disease of native coronary artery without angina pectoris; I25.2 Old myocardial infarction; M19.90 Unspecified osteoarthritis, unspecified site; Z79.01 Long term (current) use of anticoagulants; Z88.0 Allergy status to penicillin; W01.0XXA Fall on same level from slipping, tripping and stumbling without subsequent striking against object, initial encounter
CPT/HCPCS: 99284

== ENCOUNTER → 2021-06-06 | Outpatient (CLI) | payer MEDICARE ==
--- NOTE | 2021-06-06 11:28 | CT ---
EXAMINATION TYPE: CT brain wo con DATE OF EXAM: 06/06/2021 HISTORY: Dizziness for [address] DLP: 1133.3 mGycm. Automated Exposure Control for Dose Reduction was Utilized. TECHNIQUE: CT scan of the head is performed without contrast. COMPARISON: MRI brain December 09, 2020. FINDINGS: There is no acute intracranial hemorrhage or midline shift identified. There is mild to m oderate diffuse ventricular and sulcal prominence consistent with diffuse age-related cerebral atroph y. There is moderate to advanced low-attenuation in the periventricular white matter consistent with chronic small vessel ischemic change. There is right parietal craniotomy with Cucumber hole terminating in left lateral ventricle. No ventricular prominence out of proportion to degree of sulcal effacement . Ventricular size is not increased from comparison MRI. The globes are intact and the visualized sin uses are clear. IMPRESSION: No acute intracranial hemorrhage or midline shift. There is cqne-th-oodnqkun diffuse ag e-related cerebral atrophy and moderate to advanced chronic small vessel ischemic change noted. Vent riculostomy shunt catheter without hydrocephalus.
== END | disposition home or self-care (01) ==
LOC: RADCTMAIN 10:45
DX: I67.82 Cerebral ischemia (principal); G31.9 Degenerative disease of nervous system, unspecified
CPT/HCPCS: 70450

== ENCOUNTER 2021-10-12 08:08 | Day surgery (SDC) | payer MEDICARE ==
[2021-10-10 13:45] VITALS: BMI 29.4
[~2021-10-12 08:08] MED LIST changes: -CLINDAMYCIN 600 MG in DEXTROSE 5% IN WATER 50 ML IVPB ONE; -DEXAMETHASONE SOD PHOSPHATE 10 MG/ML 1 ML VIAL IV ONE; -DEXAMETHASONE SOD PHOSPHATE 4 MG/ML 1 ML VIAL IV ONE; -FAMOTIDINE 20 MG/2 ML VIAL IV ONE; -HYDROmorphone 0.5 MG/0.5 ML SYRINGE IVP PRN; +LIDOCAINE 1% (10MG/ML) FOR IV START INTRADERMA PRN; -LIDOCAINE 1% 20 ML VIAL (10MG/ML) FOR IV START INTRADERMA PRN; -MIDAZOLAM 2 MG/2 ML VIAL IV PRN; -ONDANSETRON 4 MG/2 ML VIAL IVP ONE; -SCOPOLAMINE 1.5MG/72HR PATCH TRANSDERM ONE; -fentaNYL (PF) 50 MCG/ML 2 ML AMP IV PRN
[2021-10-12 08:51] VITALS: TEMP 97.1
[2021-10-12] MEDS ORDERED: PROPOFOL 10 MG/ML 20 ML VIAL IV ONE (08:58)
--- NOTE | 2021-10-12 09:21 | P.PCN ---
Date of Procedure: 10/12/21 Procedure(s) Performed: BRIEF HISTORY: Patient is a 80-year-old pleasant white male scheduled for an elective colonoscopy as a part of value should of positive:cologuard PROCEDURE PERFORMED: Colonoscopy. PREOPERATIVE DIAGNOSIS: Positive cologuard. IV sedation per Anesthesia. PROCEDURE: After informed consent was obtained, the patient, was brought into the endoscopy unit. IV sedation was administered by Anesthesia under continuous monitoring. Digital rectal examination was normal. Initially the Olympus CF-160 flexible video colonoscope was then inserted in the rectum, gradually advanced into the cecum without any difficulty. Careful examination was performed as the scope was gradually being withdrawn. Ileocecal valve and the appendiceal orifice were visualized and appeared normal. Prep was excellent. Mucosa of the cecum, ascending colon, transverse colon, descending colon, sigmoid colon, and rectum appeared normal. Retroflexion was performed in the rectum and no lesions were seen. At her sigmoid diverticulosis The patient tolerated the procedure well. IMPRESSION: Normal-appearing colon from rectum to cecum with no evidence of colorectal neoplasia . Scattered sigmoid diverticulosis. RECOMMENDATIONS: Findings of this examination were discussed with the patient as well as his family. He was advised to be a high-fiber diet. Resume Xarelto today..
[2021-10-12] MEDS ORDERED: IV FLUID CONTINUATION 700 ML IV ONE (09:24)
[2021-10-12 10:05] VITALS: BP 138/76; PULSE 82; RESP 16
== END 2021-10-12 10:09 | disposition home or self-care (01) ==
LOC: ORWHC2ENDO 08:08
PROVIDERS: ATTEND Internal Medicine Gastroenterology
DX: Z12.11 Encounter for screening for malignant neoplasm of colon (principal)
CPT/HCPCS: 45378; J2704

== ENCOUNTER → 2022-07-11 | Outpatient (CLI) | payer MEDICARE ==
--- NOTE | 2022-07-18 22:30 | HM ---
HOLTER MONITOR REPORT The patient was monitored for 48 hours. The baseline rhythm is a sinus mechanism with a normal conduction. The average rate 72 beats per minute, minimum 53, maximum 93 beats per minute. Ventricular ectopic activity was present in the form of rare single PVCs. Supraventricular ectopic activity was present in the form of occasional single PACs. No pauses were noted. No symptoms were reported. No atrial fibrillation was noted. CONCLUSION: 1. Sinus mechanism, baseline rhythm. 2. Rare ventricular ectopic activity. 3. Occasional supraventricular ectopic activity. 4. No symptoms were reported. MMODL / IJN: [id number] /
== END | disposition home or self-care (01) ==
LOC: RADECHMAIN 12:01
PROVIDERS: ATTEND Psychiatry & Neurology Neurology
DX: I49.3 Ventricular premature depolarization (principal); I47.1 Supraventricular tachycardia
CPT/HCPCS: 93225; 93226

== ENCOUNTER → 2022-11-30 | Outpatient (CLI) | payer MEDICARE ==
--- NOTE | 2022-11-30 11:24 | US ---
EXAMINATION TYPE: US kidneys/renal and bladder DATE OF EXAM: 11/30/2022 COMPARISON: US, CT 2013 CLINICAL HISTORY: N28.1 Cyst of kidney, acquired. Cyst of kidney. EXAM MEASUREMENTS: Right Kidney: 8.4 x 5.7 x 4.3 cm Left Kidney: 11.5 x 5.1 x 5.3 cm Right Kidney: Appears small in size. -Hyperechoic focus seen lower medially: 0.3 x 0.3 x 0.4 cm. -Hyperechoic focus seen at mid: 0.7 x 0.6 x 0.6 cm. -Anechoic area seen upper: 6.3 x 6.4 x 6.5 cm. Left Kidney: No hydronephrosis or masses seen Bladder: Appears anechoic. Bilateral Jets seen: Yes IMPRESSION: 1. Right sided renal atrophy with renal calculi but no hydronephrosis. 6.3 cm a large right simple cy st noted.
== END | disposition home or self-care (01) ==
LOC: RADUSWWP 10:32
PROVIDERS: ATTEND Urology
DX: N20.0 Calculus of kidney (principal); N28.1 Cyst of kidney, acquired; N26.1 Atrophy of kidney (terminal)
CPT/HCPCS: 76770

== ENCOUNTER → 2023-12-26 | Outpatient (CLI) | payer MEDICARE ==
--- NOTE | 2023-12-26 19:30 | US ---
EXAMINATION TYPE: US kidneys/renal and bladder DATE OF EXAM: 12/26/2023 COMPARISON: 11/30/2022 CLINICAL INDICATION: Male, 83 years old with history of N28.1 CYST OF KIDNEY; Hx os stones EXAM MEASUREMENTS: Right Kidney: 11.9 x 6.0 x 5.6 cm Left Kidney: 10.1 x 5.4 x 3.5 cm Right Kidney: Multiple echogenic areas seen. Anechoic area 5.4 x 5.3 x 5.5 cm Left Kidney: No hydronephrosis or masses seen Bladder: Anechoic Bilateral Jets seen: No Lobulated renal cortex of normal thickness. Normal cortical echogenicity. IMPRESSION: 1. Right-sided nephrolithiasis with no hydronephrosis. 2. Simple appearing renal renal cyst.
== END | disposition home or self-care (01) ==
LOC: RADUSWWP 15:55
PROVIDERS: ATTEND Urology
DX: N28.1 Cyst of kidney, acquired (principal); N20.0 Calculus of kidney
CPT/HCPCS: 76770